=== PATIENT | female | born 1970 | race Hispanic/Latino ===

== ENCOUNTER 2016-05-30 21:50 | Observation (INO) | payer MEDICARE, MEDICAID ==
[2016-05-30] MEDS ORDERED: ASPIRIN TABLET 325 MG TAB ONE (22:03)
[2016-05-30] MEDS ORDERED: NITROGLYCERIN 0.4 MG 25 EA TAB SL ONE ×3 (22:03→22:12)
[2016-05-30] MEDS ORDERED: ASPIRIN TABLET 325 MG TAB PO ONE (22:04)
--- NOTE | 2016-05-30 22:19 | ED.PDOC ---
History of Present Illness - General Chief Complaint: Respiratory Problem Stated Complaint: short of breath, edema to feet Time Seen by Provider: 05/30/16 21:55 Source: patient, RN notes reviewed, Vital Signs reviewed Exam Limitations: no limitations - History of Present Illness Initial Comments: Patient reports that yesterday she started with intermittent chest tightness, SOB and lower extremity swelling. She thought she was having indigestion so she took OTC medications without improvement. + nausea and cold sweats. This has continued intermittently throughout today. Timing/Duration: 24 hours Severity: moderate Activities at Onset: none Possible Cause: no prior episodes Improving Factors: nothing Worsening Factors: nothing Associated Symptoms: chest pain, edema, lightheadedness Respiratory Risk Factors: no cause identified Allergies/Adverse Reactions: Allergies Levofloxacin [From Levaquin] Allergy (Intermediate, Verified 03/04/16 16:56) Rash Metronidazole [From Flagyl] Allergy (Verified 03/04/16 16:56) Sulfa Drugs Allergy (Verified 03/04/16 16:56) Morphine Adverse Reaction (Verified 03/04/16 16:56) Home Medications: Ambulatory Orders Clonazepam [Klonopin] 2 mg PO TID 04/15/14 Oxycodone W/ Acetaminophen [Percocet 10-325 mg] 2 tab PO QID 04/15/14 Insulin Glargine [Toujeo Solostar] 15 units SUBCU ACBK 06/02/15 Zolpidem Tartrate [Ambien] 10 mg PO BEDTIME 06/02/15 Dulaglutide [Trulicity] 1.5 mg SC WKLY 06/03/15 Gabapentin [Neurontin] 900 mg PO TID 06/03/15 Methylnaltrexone Conception [Relistor] 8 mg IM DAILY PRN 06/03/15 Promethazine Tab [Phenergan Tablet] 25 mg PO Q6H PRN 06/03/15 tiZANidine [Zanaflex] 4 mg PO Q8H PRN 06/03/15 Cefuroxime Axetil [Ceftin] 250 mg PO BID #20 tab 06/05/15 Tramadol HCl [Ultram] 100 mg PO Q6HRS PRN #30 tab 11/08/15 Ondansetron Odt [Zofran ODT] 8 mg PO Q6HR PRN #20 tab 12/23/16 Review of Systems - Review of Systems Constitutional: States: diaphoresis, malaise, weakness. Denies: chills, fever EENTM: States: no symptoms reported Respiratory: States: short of breath. Denies: cough, stridor, wheezing Cardiology: States: chest pain, edema, palpitations. Denies: syncope Gastrointestinal/Abdominal: States: nausea. Denies: abdominal pain, diarrhea, vomiting Genitourinary: States: no symptoms reported Musculoskeletal: States: no symptoms reported Skin: States: no symptoms reported Neurological: States: no symptoms reported Endocrine: States: no symptoms reported Hematologic/Lymphatic: States: no symptoms reported Past Medical History (General) - Patient Medical History Hx Seizures: No Hx Stroke: No Hx Dementia: No Hx Asthma: No Hx of COPD: No Hx Cardiac Disorders: No Hx Congestive Heart Failure: No Hx Pacemaker: No Hx Hypertension: No Hx Thyroid Disease: No Hx Diabetes: Yes Hx Gastroesophageal Reflux: No Hx Renal Disease: No Hx Cancer: No Hx of HIV: No Hx Hepatitis C: No Hx MRSA: No MRSA Source:: Wound Surgical History: appendectomy, cholecystectomy, Hysterectomy - Vaccination History Hx Tetanus, Diphtheria Vaccination: No Hx Influenza Vaccination: Yes Hx Pneumococcal Vaccination: No Immunizations Up to Date: Yes - Social History Hx Tobacco Use: Yes Hx Chewing Tobacco Use: No Hx Alcohol Use: No Hx Substance Use: No Hx Substance Use Treatment: No Hx Depression: No Feels Threatened In Home Enviroment: No Feels Threatened In a Relationship: No Hx Physical Abuse: No Hx Emotional Abuse: No Hx Suspected Abuse: No - Activities of Daily Living Hospice Agency (if applicable):: None - Female History Patient is a Female of Child Bearing Age (10 -59 yrs old): Yes Patient : No Family Medical History - Family History Mother Family History: Unknown Living Status: Physical Exam - Physical Exam General Appearance: Alert, Restless, Unkempt, Well Developed, Well Hydrated, Well Nourished Neck: non-tender, full range of motion, supple, normal inspection Respiratory: chest non-tender, lungs clear, normal breath sounds, no respiratory distress, no accessory muscle use Cardiovascular/Chest: normal peripheral pulses, regular rate, rhythm, no gallop , no JVD, other - 1+ edema bilateral ankles Peripheral Pulses: dorsalis pedis,right: 2+, dorsalis pedis,left: 2+ Gastrointestinal/Abdominal: normal bowel sounds, non tender, soft, no organomegaly, no pulsatile mass Extremity: normal range of motion, non-tender, normal capillary refill, pedal edema Neurologic: no motor/sensory deficits, alert, normal mood/affect, oriented x 3 Skin Exam: normal color, warm/dry Lymphatic: no adenopathy Progress - Progress Progress: 05/30/16 22:28 Patient reports no change in chest discomfort after 2 SLNTG but BP dropped to 102/53. Will hold off on 3rd SLNTG. She is also allergic to Morphine. 05/30/16 23:[address] Cobb. She has a mildly elevated CPK and BNP. Also she gives a fairly concerning story for cardiac issues. Will admit for Cardiac rule out. Patient agreeable with admission. - Results/Orders Results/Orders: Vital Signs - 24 hr 05/30/16 05/30/16 05/30/16 21:58 22:02 22:12 Temperature 98.6 F Pulse Rate [ 96 H 92 H monitor] Respiratory 18 18 Rate Blood Pressure 125/82 103/63 [Left Arm] O2 Sat by Pulse 96 Oximetry 05/30/16 05/30/16 22:20 22:34 Temperature Pulse Rate [ 85 monitor] Respiratory 14 Rate Blood Pressure 103/59 93/54 [Left Arm] O2 Sat by Pulse Oximetry Laboratory Tests 05/30/16 05/30/16 22:32 22:35 WBC 7.2 RBC 3.59 L Hgb 11.8 L Hct 35.5 L MCV 98.8 MCH 32.8 H MCHC 33.3 RDW 13.9 Plt Count 218 MPV 8.1 Absolute Neuts (auto) 4.20 Absolute Lymphs (auto) 2.40 Absolute Monos (auto) 0.40 Absolute Eos (auto) 0.10 Absolute Basos (auto) 0.10 Neutrophils % 58.7 Lymphocytes % 33.0 Monocytes % 5.9 Eosinophils % 1.2 Basophils % 1.2 D-Dimer, Quantitative < 200 Sodium 138 Potassium 4.1 Chloride 106 Carbon Dioxide 25 Anion Gap 11.1 L BUN 15 Creatinine 1.06 BUN/Creatinine Ratio 14.2 Random Glucose 160 H Serum Osmolality 279.9 Calcium 8.1 L Total Bilirubin 0.3 AST 21 ALT 50 Alkaline Phosphatase 70 Creatine Kinase 215 H* CK-MB (CK-2) 3.1 CK-MB (CK-2) % Not Reportable Troponin I < 0.02 B-Natriuretic Peptide 145.0 H Serum Total Protein 6.4 Albumin 3.5 Globulin 2.9 Albumin/Globulin Ratio 1.2 Urine Opiates Screen Positive H Urine Barbiturates Negative Ur Phencyclidine Scrn Negative U Amphetamin/Meth Scrn Negative U Benzodiazepines Scrn Positive H U Cocaine Metab Screen Negative U Cannabinoids Screen Negative - EKG/XRAY/CT EKG: Sinus, no ST T wave changes Comments: rate 92bpm Departure - Departure Clinical Impression: Chest pain, Nausea, Shortness of breath, Edema Time of Disposition: 23:11 Disposition: Admit Patient Condition: Fair Departure Forms: ED Discharge - Pt. Copy, Patient Portal Self Enrollment Home Medications: Ambulatory Orders Clonazepam [Klonopin] 2 mg PO TID 04/15/14 Oxycodone W/ Acetaminophen [Percocet 10-325 mg] 2 tab PO QID 04/15/14 Insulin Glargine [Toujeo Solostar] 15 units SUBCU ACBK 06/02/15 Zolpidem Tartrate [Ambien] 10 mg PO BEDTIME 06/02/15 Dulaglutide [Trulicity] 1.5 mg SC WKLY 06/03/15 Gabapentin [Neurontin] 900 mg PO TID 06/03/15 Methylnaltrexone Conception [Relistor] 8 mg IM DAILY PRN 06/03/15 Promethazine Tab [Phenergan Tablet] 25 mg PO Q6H PRN 06/03/15 tiZANidine [Zanaflex] 4 mg PO Q8H PRN 06/03/15 Cefuroxime Axetil [Ceftin] 250 mg PO BID #20 tab 06/05/15 Tramadol HCl [Ultram] 100 mg PO Q6HRS PRN #30 tab 11/08/15 Ondansetron Odt [Zofran ODT] 8 mg PO Q6HR PRN #20 tab 03/04/16 Decision To Admit - Decistion To Admit Decision to Admit Reason: Admit from ER
--- NOTE | 2016-05-30 22:52 | RAD ---
EXAM DESCRIPTION: Chest,1 View CLINICAL HISTORY: Atypical chest pain COMPARISON: None FINDINGS: Cardiac silhouette is within normal limits. Decreased lung volumes could be secondary to underinflation. Linear opacities of the lower lungs may represent scar versus subsegmental atelectasis. Patient is rotated. There is no acute osseous process visualized. IMPRESSION: Decreased lung volumes could be secondary to underinflation. Linear opacities of the lower lungs may represent scar versus subsegmental atelectasis. Electronically signed by: Jan Atkins MD 05/30/2016 10:52 PM CDT
[2016-05-30] MEDS ORDERED: SODIUM CHLORIDE 0.9% 1000ML 1,000 ML IVS ONE (23:05)
[2016-05-30] MEDS ORDERED: ONDANSETRON INJ 4 MG/2 ML VIAL IV ONE (23:09)
[2016-05-30] MEDS ORDERED: GLUCAGON INJ 1 MG VIAL SUBCU PRN (23:26)
[2016-05-30] MEDS ORDERED: NITROGLYCERIN 0.4 MG 25 EA TAB SL PRN (23:26)
[2016-05-30] MEDS ORDERED: DEXTROSE 50% 25 GM/50 ML SYG IV PRN (23:26)
[2016-05-30] MEDS ORDERED: SODIUM CHLORIDE 0.9% (FLUSH) 10 ML SYG IV PRN (23:26)
[2016-05-30] MEDS ORDERED: ACETAMINOPHEN 325 MG TAB PO PRN (23:26)
[2016-05-30] MEDS ORDERED: IV SET AND CAP CHANGE INJ INJ SCH (23:30)
[2016-05-30] MEDS ORDERED: SODIUM CHLORIDE 0.9% 1000ML 1,000 ML IVS PRN (23:32)
[2016-05-30] MEDS ORDERED: FUROSEMIDE INJ 20 MG/2 ML VIAL IV ONE (23:35)
[2016-05-30] MEDS ORDERED: tiZANidine 4 MG TAB PO PRN (23:37)
[2016-05-30] MEDS ORDERED: ONDANSETRON ODT 8 MG TAB PO PRN (23:37)
[2016-05-30] MEDS ORDERED: traMADol HCL 50 MG TAB PO PRN (23:44)
[2016-05-30] MEDS ORDERED: MAGNESIUM HYDROXIDE 30 ML UD PO PRN (23:45)
[2016-05-31] MEDS: GABAPENTIN 300 MG CAP PO SCH ×2 (00:11→09:43)
[2016-05-31] MEDS ORDERED: ZOLPIDEM TARTRATE 5 MG TAB ONE (00:22)
[2016-05-31] MEDS: HYDROcodone 7.5MG/APAP 325MG 1 EA TAB PO PRN ×3 (00:25→10:12)
[2016-05-31] MEDS: LEVALBUTEROL NEBS 1.25 MG/3 ML VIAL NEB SCH ×3 (00:55→14:35)
[2016-05-31] MEDS ORDERED: OMEPRAZOLE CAP 20 MG CAP PO SCH (06:30)
[2016-05-31] MEDS: INSULIN LISPRO 100 UNITS/ML PEN SUBCU SCH ×2 (07:28→09:44)
[2016-05-31] MEDS ORDERED: ASPIRIN TABLET 325 MG TAB PO SCH (09:00)
[2016-05-31] MEDS ORDERED: INSULIN DETEMIR 100 UNITS/ML PEN SUBCU SCH (09:00)
[2016-05-31] MEDS ORDERED: SODIUM CHLORIDE 0.9% (FLUSH) 10 ML SYG IV SCH (09:00)
[2016-05-31] MEDS ORDERED: POLYETHYLENE GLYCOL 3350 17 GM PCKT PO SCH (09:00)
--- NOTE | 2016-05-31 09:31 | PCM.CORE ---
Physician DVT/VTE - Nurse DVT Assessment & Total Each Risk Factor Represents 1 Point: Age 41-60, Hx of smoking past year Each Risk Factor is 1 Point: Varicose Veins/Edema Legs, Obesity (BMI >25) DVT Assessment Score: 4
[2016-05-31 10:17] VITALS: BP 106/67; TEMP 97.8; O2SAT 100
--- NOTE | 2016-05-31 13:27 | SSS ---
DATE OF ADMISSION: 05/30/16 DATE OF DISCHARGE: 05/31/16 DISCHARGE DIAGNOSIS: 1. Acute chest pain with no evidence of underlying ischemic coronary disease. 2. Diabetes mellitus, on insulin therapy. 3. Chest wall discomfort with costochondritis. 4. Chronic anxiety. 5. Chronic low back pain after surgeries and implantation and subsequent removal of analgesic pump. 6. History of urinary tract infections in the past. 7. History of vertigo. 8. Peripheral edema. 9. Diabetic peripheral neuropathy, symptomatic. 10. Chronic constipation, probably secondary to significant opioid medications for pain relief, being managed by pain clinic. HISTORY OF PRESENT ILLNESS: This 45-year-old, female is placed in the hospital for overnight observation from the Emergency Room. She had developed worsening chest discomfort earlier in the day with associated edema and shortness of breath. She came to the Emergency Room for specific treatment. She was given nitroglycerin 2 sublingual tablet which did not help the chest pain, but did significantly lower her systolic blood pressure. It is of note that she has had this chest pain before and states she has not been evaluated by cardiology yet. She is closely followed by Srinath Workman in the clinic in [facility]. It is of note that a month ago her son and daughter both moved into her home and they are assisting in her ongoing care. She is on insulin for her diabetes management as well as a diabetic diet. Symptoms of vertigo have been noted in the past. Significant anxiety has been noted in the Emergency Room and clinic visits in the past. The patient was placed in the hospital for serial EKG as well as cardiac enzyme repeating earlier this morning and close followup to follow. PAST MEDICAL HISTORY: 1. Diabetes mellitus, type 1.5, requiring insulin therapy. 2. History of colitis. 3. History of Clostridium difficile infection. 4. Gastroesophageal reflux disease. 5. Recurring urinary tract infections. 6. Headaches. 7. Chronic low back pain, having received multiple surgeries with hardware placement as well as pain management with analgesic pumps, now removed. 8. Irritable bowel syndrome. 9. Chronic anxiety and depression. PAST SURGICAL HISTORY: 1. Gallbladder removal. 2. Tonsillectomy and adenoidectomy. 3. Appendectomy. 4. Hysterectomy. 5. Incarcerated hernia. 6. on two occasions. 7. Right knee pain. 8. Back surgery on three occasions requiring cage for fixation and stabilization of the lumbar spine. CURRENT MEDICATIONS: Please refer to nursing notes for a list of verified home medications. MEDICAL PROVIDERS: 1. Dr. Esau Wing, [place]. 2. Srinath Workman, Nurse Practitioner, primary care provider. ALLERGIES: LEVOFLOXACIN, METRONIDAZOLE, SULFA MEDICATIONS. FAMILY HISTORY: No significant problems. SOCIAL HISTORY: The patient is disabled, . She has a history of smoking two packs of cigarettes for over 25 years, currently willing to stop and encouraged to do so. REVIEW OF SYSTEMS: GENERAL: No significant weight change, fever or chills. HEENT: Hearing and vision appear to be fairly normal. LUNGS: Shortness of breath, especially upon exertion. CARDIOVASCULAR: Chest discomfort, especially to the left of midline with referral to the left arm. No palpitations. GASTROINTESTINAL: No significant nausea or vomiting or diarrhea. GENITOURINARY: No dysuria. NEUROLOGIC: No focal weakness. No significant headaches at this time. PHYSICAL EXAMINATION: VITAL SIGNS: Afebrile. Blood pressure 104/68. Pulse oximetry 92% on room air , up to 100% on room air. Weight 89.3 kg. GENERAL: The patient is awake and alert. She is quite anxious and tearful at times as she describes her many symptoms. HEENT: Within normal limits. NECK: Supple. LUNGS: Diminished breath sounds, otherwise clear. CARDIOVASCULAR: Heart tones are regular. There is significant chest wall discomfort and tenderness upon palpation to the left of midline, which is where she is pointing as to the location of her underlying pain. She admits to increased pain when chest wall is palpated, but admits there are other components of the pain which are not specifically tied to the palpation. There are no significant gallops. ABDOMEN: Soft with no organomegaly, masses. EXTREMITIES: Fairly well-formed with trace of edema at the ankles and feet. NEUROLOGIC: No focal neurological deficits are noted. The patient is awake, alert, oriented and communicative. LABORATORY: White count 5,600. Hemoglobin 12.1. D-dimer under 200. Chemistries show potassium 3.9, BUN 13, creatinine 0.94, glucose 140 up to 160. Hemoglobin A1c 7.2. Calcium 8. Liver enzymes normal. CK decreased from 215 to 168 while troponin is 0. Beta natriuretic peptide 145. Albumin 3.5, cholesterol 200. Urinalysis generally clean. Urine drug screen is positive for opioids and benzodiazepines. MRSA surveillance culture pending. Chest x- ray reveals hypoventilation with some atelectasis noted in the lower lung murdock. HOSPITAL COURSE: The patient will still having some discomfort at the time of her discharge. She was still quite anxious, but was significantly assisted by the Klonopin when administered. Her condition is discussed with Dr. Carroll who will be glad to work closely with Srinath Workman in further cardiac evaluation after the patient is discharged. PLAN: Followup with Srinath Workman in the clinic this next with appointment to be made. Continue on a diabetic diet and closely manage the diabetes itself. Continue with home medications except decrease the gabapentin from 900 to 600 mg 3 times a day. Try meclizine 25 mg b.i.d. for dizziness and Prilosec 20 mg in the morning for the next 2 weeks at least to see if it will help some of her epigastric tenderness and discomfort. Srinath Workman can notify Dr. Carroll who will be able to help schedule a stress test to evaluate the cardiac situation. Return if not improving. #[id number] [facility]
[2016-05-31] MEDS ORDERED: ZOLPIDEM TARTRATE 5 MG TAB PO SCH (21:00)
== END 2016-05-31 14:00 | disposition home or self-care (01) ==
LOC: ER 21:50 → MS 23:16
PROVIDERS: ADMIT Emergency Medicine; ATTEND Emergency Medicine
DX: R07.89 Other chest pain (principal); R06.02 Shortness of breath; E11.42 Type 2 diabetes mellitus with diabetic polyneuropathy; M94.0 Chondrocostal junction syndrome [Tietze]; F41.9 Anxiety disorder, unspecified; G89.29 Other chronic pain; M54.5 Low back pain; R42 Dizziness and giddiness; R60.0 Localized edema; K58.1 Irritable bowel syndrome with constipation; K21.9 Gastro-esophageal reflux disease without esophagitis; F32.9 Major depressive disorder, single episode, unspecified; F17.210 Nicotine dependence, cigarettes, uncomplicated; Z79.4 Long term (current) use of insulin; Z79.899 Other long term (current) drug therapy; Z88.2 Allergy status to sulfonamides; Z88.3 Allergy status to other anti-infective agents; Z87.440 Personal history of urinary (tract) infections; Z90.49 Acquired absence of other specified parts of digestive tract; Z90.710 Acquired absence of both cervix and uterus
CPT/HCPCS: 36415 ×2; 36416 ×2; 71010; 80048; 80053; 80061; 80307; 81001; 82550 ×2; 82553 ×2; 82948 ×3; 83036; 83880; 84484 ×2; 85025 ×2; 85379; 87070; 93005 ×2; 94640 ×2; 94760 ×2; G0378; J1815 ×2; J1940; J2405; J7030 ×2; J7614 ×2

== ENCOUNTER 2016-06-15 16:40 | Emergency (ER) | payer MEDICARE, MEDICAID ==
[2016-06-15] MEDS ORDERED: ASPIRIN (CHEWABLE) 81 MG TAB ONE (16:44)
[2016-06-15] MEDS ORDERED: NITROGLYCERIN 0.4 MG 25 EA TAB SL ONE ×2 (16:44→16:47)
[2016-06-15] MEDS ORDERED: MORPHINE SULFATE INJ 10 MG/ML VIAL ONE (17:02)
[2016-06-15] MEDS ORDERED: MORPHINE SULFATE INJ 10 MG/ML VIAL IV ONE (17:03)
[2016-06-15] MEDS ORDERED: ASPIRIN TABLET 325 MG TAB PO ONE (17:04)
--- NOTE | 2016-06-15 17:13 | ED.PDOC ---
History of Present Illness - General Chief Complaint: Chest Pain/CT Stated Complaint: Chest Pain X 1 hour Time Seen by Provider: 06/15/16 17:08 Source: patient, RN notes reviewed, Vital Signs reviewed Exam Limitations: no limitations - History of Present Illness Initial Comments: Patient presents with 1 hour of substernal chest pain/heaviness that is radiating to her shoulder blade on the L. C/O fluttering in her chest. + SOB and nausea. No diaphoresis. She had a similar episode a few weeks ago and was found to have CHF. She saw her PCP today while awaiting appt with Project Technician. She has been having a rapid heart rate and started a new medication for that. She took a dose when her chest pain and fluttering started. Timing/Duration: 1 hour Severity/Quality: severe, pressure, tightness Location: substernal Chest Pain Radiation: back Activities at Onset: none Prior Chest Pain/Cardiac Workup: other - she was admited to the hospital last month for cardiac rule out which was negative. Asaiting further w/u with Project Technician. Improving Factors: nothing Worsening Factors: nothing Nitro Today/Relief: no nitro taken today Aspirin Treatment Today: no aspirin today Associated Symptoms: back pain, edema, nausea/vomiting, shortness of breath Allergies/Adverse Reactions: Allergies Levofloxacin [From Levaquin] Allergy (Intermediate, Verified 03/04/16 16:56) Rash Metronidazole [From Flagyl] Allergy (Verified 03/04/16 16:56) Sulfa Drugs Allergy (Verified 03/04/16 16:56) Morphine Adverse Reaction (Verified 03/04/16 16:56) Home Medications: Ambulatory Orders Clonazepam [Klonopin] 2 mg PO TID 04/15/14 Zolpidem Tartrate [Ambien] 10 mg PO BEDTIME 06/02/15 tiZANidine [Zanaflex] 4 mg PO Q8H PRN 06/03/15 Tramadol HCl [Ultram] 100 mg PO Q6HRS PRN #30 tab 11/08/15 Gabapentin [Neurontin] 600 mg PO TID #0 05/31/16 HYDROcodone 10MG/APAP 325MG [[place] 10/325] 1 tab PO Q6H PRN 05/31/16 Insulin Detemir [Levemir Pen] 10 unit SUBCU BEDTIME 05/31/16 Liraglutide [Victoza] 1.8 mg SC DAILY 05/31/16 Meclizine HCl 25 mg PO BID PRN #30 tab 05/31/16 Omeprazole Magnesium [Prilosec Otc] 20 mg PO QAM #30 tab 05/31/16 Review of Systems - Review of Systems Constitutional: States: chills. Denies: diaphoresis, fever, malaise Respiratory: States: see HPI, short of breath. Denies: cough, orthopnea, stridor Cardiology: States: see HPI, chest pain, edema, palpitations. Denies: syncope Gastrointestinal/Abdominal: States: see HPI, nausea. Denies: abdominal pain, diarrhea, vomiting Musculoskeletal: States: see HPI, back pain Skin: States: no symptoms reported Neurological: States: no symptoms reported. Denies: headache, numbness, paresthesia, tingling, tremors, weakness Endocrine: States: no symptoms reported Past Medical History (General) - Patient Medical History Hx Seizures: No Hx Stroke: Yes Hx Dementia: No Hx Asthma: No Hx of COPD: Yes Hx Cardiac Disorders: No Hx Congestive Heart Failure: No Hx Pacemaker: No Hx Hypertension: No Hx Thyroid Disease: No Hx Diabetes: Yes Hx Gastroesophageal Reflux: No Hx Renal Disease: No Hx Cancer: No Hx of HIV: No Hx Hepatitis C: No Hx MRSA: Yes MRSA Source:: Wound - Vaccination History Hx Tetanus, Diphtheria Vaccination: No Hx Influenza Vaccination: Yes Hx Pneumococcal Vaccination: No - Social History Hx Tobacco Use: Yes Hx Chewing Tobacco Use: No Hx Alcohol Use: No Hx Substance Use: No Hx Substance Use Treatment: No Hx Depression: No Hx Physical Abuse: No Hx Emotional Abuse: No Hx Suspected Abuse: No - Female History Patient : No Family Medical History - Family History Mother Family History: Unknown Living Status: Physical Exam - Physical Exam General Appearance: Anxious, Obvious distress - appears in pain and SOB, Well Developed, Well Groomed, Well Hydrated, Well Nourished Neck: non-tender, full range of motion, supple, normal inspection Respiratory: lungs clear, normal breath sounds, no respiratory distress, no accessory muscle use, other - Chest is tender to palpation. Cardiovascular/Chest: normal peripheral pulses, no edema, no gallop, no JVD, no murmur, tachycardia Peripheral Pulses: dorsalis pedis,right: 2+, dorsalis pedis,left: 2+ Gastrointestinal/Abdominal: normal bowel sounds, non tender, soft, no organomegaly, no pulsatile mass Neurologic: no motor/sensory deficits, alert, normal mood/affect, oriented x 3 Skin Exam: normal color, warm/dry Comments: Vital Signs - 24 hr 06/15/16 06/15/16 06/15/16 16:40 16:48 16:53 Temperature 98.1 F Pulse Rate 106 H Pulse Rate [ 102 H 113 H 102 H Apical] Respiratory 26 H 26 H 26 H Rate Blood Pressure 113/73 113/73 110/71 [Right Arm] O2 Sat by Pulse 91 L 89 L 95 Oximetry 06/15/16 06/15/16 06/15/16 16:58 17:31 18:05 Temperature Pulse Rate Pulse Rate [ 103 H 86 Apical] Respiratory 26 H 26 H Rate Blood Pressure 116/66 122/64 [Right Arm] O2 Sat by Pulse 92 L 90 L 95 Oximetry 06/15/16 06/15/16 19:00 20:21 Temperature Pulse Rate Pulse Rate [ 84 72 Apical] Respiratory 20 18 Rate Blood Pressure 118/62 95/61 [Right Arm] O2 Sat by Pulse 95 95 Oximetry Progress - Progress Progress: 06/15/16 17:41 Patient continues to c/o pain. Presentation is exact same as visit last month. Other than tachycardia her EKG is unchanged. No rash or problem with morphine. Will give Toradol and ativan for pain and anxiety. 06/15/16 17:44 Patient seen on arrival. Given ASA 324mg PO/chewed @ 1647 Reports pain is 8 16:48 SLNTG #1 given 16:53 pain 7/10 - SLNTG #2 given 16:58 pain 6/10 - SLNTG #3 given 17:07 pain 6/10 - Morphine 4mg IV given 17:10 pain 5/10 06/15/16 18:37 Initial cardiac workup is normal. Will redraw cardiac labs in 2 hours. 06/15/16 19:43 Patient continuing to c/o chest pain that is waxing and waning. Will try Protonix IV 06/15/16 20:28 Second set of cardiac enzymes are normal. Unlikely pain is cardiac in nature. 06/15/16 20:47 Discussed Symptoms and results with patient. Discussed that now given 2 negative cardiac work ups it is unlikely that her pain is cardiac in nature. Also, no medications given on this visit, (Aspirin, nitroglycerin, morphine, toradol, ativan or protonix) changed or resolved her pain. Discussed could be musculoskeletal. Will try a steroid pack. Patient just wants to go home. Will d/ c home and have her follow up with her PCP. - Results/Orders Results/Orders: Laboratory Tests 06/15/16 06/15/16 17:10 19:32 WBC 6.9 RBC 4.01 L Hgb 13.4 Hct 39.3 MCV 98.0 MCH 33.4 H MCHC 34.1 RDW 13.6 Plt Count 262 MPV 8.8 Absolute Neuts (auto) 3.50 Absolute Lymphs (auto) 2.90 Absolute Monos (auto) 0.30 Absolute Eos (auto) 0.10 Absolute Basos (auto) 0.10 Neutrophils % 50.5 Lymphocytes % 42.2 Monocytes % 5.1 Eosinophils % 1.2 Basophils % 1.0 PT 11.9 INR 1.050 PTT (SP) 31.4 Sodium 137 Potassium 3.1 L Chloride 108 Carbon Dioxide 22 Anion Gap 10.1 L BUN 21 H Creatinine 0.89 BUN/Creatinine Ratio 23.6 H Random Glucose 137 H Serum Osmolality 278.9 Calcium 9.0 Magnesium 2.0 Creatine Kinase 64 56 CK-MB (CK-2) 1.6 0.8 CK-MB (CK-2) % Not Reportable Not Reportable Troponin I < 0.02 < 0.02 B-Natriuretic Peptide < 5.0 - EKG/XRAY/CT EKG: Sinus, Tachy, nonspecific ST T wave Chg, Unchanged from - 05/30/16 except for rate Comments: Rate 106 bpm Departure - Departure Clinical Impression: Atypical chest pain Time of Disposition: 20:51 Disposition: Discharge to Home or Self Care Condition: Good Departure Forms: ED Discharge - Pt. Copy, Patient Portal Self Enrollment Instructions: DI for Atypical Chest Pain Diet: resume usual diet Activity: increase activity as tolerated Referrals: MAMI ALMEIDA IV ELECTRICITY TRADER [Primary Care Provider] - 1-2 Days Home Medications: Ambulatory Orders Clonazepam [Klonopin] 2 mg PO TID 04/15/14 Zolpidem Tartrate [Ambien] 10 mg PO BEDTIME 06/02/15 tiZANidine [Zanaflex] 4 mg PO Q8H PRN 06/03/15 Tramadol HCl [Ultram] 100 mg PO Q6HRS PRN #30 tab 11/08/15 Gabapentin [Neurontin] 600 mg PO TID #0 05/31/16 HYDROcodone 10MG/APAP 325MG [[place] 10325] 1 tab PO Q6H PRN 05/31/16 Insulin Detemir [Levemir Pen] 10 unit SUBCU BEDTIME 05/31/16 Liraglutide [Victoza] 1.8 mg SC DAILY 05/31/16 Meclizine HCl 25 mg PO BID PRN #30 tab 05/31/16 Omeprazole Magnesium [Prilosec Otc] 20 mg PO QAM #30 tab 05/31/16
--- NOTE | 2016-06-15 17:31 | RAD ---
EXAM DESCRIPTION: Chest,1 View CLINICAL HISTORY: 45 years Female chest pain COMPARISON: 05/30/2016. FINDINGS: The cardiomediastinal silhouette appears unremarkable. Mild atelectatic change at the left lung base. The atelectatic changes at the lung bases are improved compared to the previous study. No consolidating infiltrates or pleural effusions. No pneumothorax. IMPRESSION: Atelectatic changes at the left lung base. Electronically signed by: Phillip Leyva MD 06/15/2016 5:30 PM CDT
[2016-06-15] MEDS ORDERED: KETOROLAC TROMETHAMINE INJ 30 MG/ML VIAL IV ONE (17:43)
[2016-06-15] MEDS ORDERED: KETOROLAC TROMETHAMINE INJ 30 MG/ML VIAL ONE (18:53)
[2016-06-15] MEDS ORDERED: ASPIRIN TABLET 325 MG TAB ONE (18:54)
[2016-06-15] MEDS ORDERED: PANTOPRAZOLE SODIUM IV 40 MG VIAL IV ONE (19:42)
[2016-06-15 21:19] VITALS: BP 121/77; TEMP 98; O2SAT 96
== END 2016-06-15 21:00 | disposition home or self-care (01) ==
LOC: ER 16:40
DX: R07.89 Other chest pain (principal); E11.9 Type 2 diabetes mellitus without complications; J44.9 Chronic obstructive pulmonary disease, unspecified; Z86.14 Personal history of Methicillin resistant Staphylococcus aureus infection; Z88.2 Allergy status to sulfonamides; Z88.3 Allergy status to other anti-infective agents; Z79.899 Other long term (current) drug therapy
CPT/HCPCS: 36415; 71010; 80048; 82550; 82553; 83880; 84484; 85025; 85610; 85730; 93005; 94760; J1885; J2060; J2270

== ENCOUNTER → 2016-10-03 | Outpatient (CLI) | payer MEDICARE, MEDICAID | END | disposition home or self-care (01) | LOC: YCFC.O 09:14 | PROVIDERS: ATTEND Anesthesiology Pain Medicine | DX: Z79.891 Long term (current) use of opiate analgesic (principal) ==

== ENCOUNTER → 2016-10-18 | Outpatient (CLI) | payer MEDICARE, MEDICAID | END | disposition home or self-care (01) | LOC: YCFC.O 13:34 | PROVIDERS: ATTEND Anesthesiology Pain Medicine | DX: Z79.891 Long term (current) use of opiate analgesic (principal) ==

== ENCOUNTER → 2017-01-10 | Outpatient (CLI) | payer MEDICARE, MEDICAID | LOC: YCFC.O 13:22 | PROVIDERS: ATTEND Anesthesiology Pain Medicine | DX: Z79.891 Long term (current) use of opiate analgesic (principal) ==

== ENCOUNTER 2018-08-21 11:56 | Emergency (ER) | payer MEDICARE, MEDICAID ==
--- NOTE | 2018-08-21 12:27 | ED.PDOC ---
History of Present Illness - General Chief Complaint: Cardiovascular Problem Time Seen by Provider: 08/21/18 12:15 Source: patient Exam Limitations: no limitations - History of Present Illness Initial Comments: PT PRESENTS WITH COMPLAINT OF INTERMITTENT EPISODES OF CHEST PAIN DESCRIBED TIGHTNESS X 1 DAY. PT REPORTS TAKING NTG WITH THE FIRST EPISODE AND REPORTS RELIEF. SHE STATES THAT EPISODES HAVE CONTINUED TO REOCCUR SINCE THEN. SHE DENIES TAKING ADDITIONAL NTG. PT REPORTS HISTORY OF MO AND CHF AND WILL BE SEEING DR. SHEARER FOR THE FIRST TIME SOON. Timing/Duration: 7-24 hours Severity/Quality: moderate, tightness Location: substernal Chest Pain Radiation: no radiation Activities at Onset: sleep Prior Chest Pain/Cardiac Workup: heart attack Nitro Today/Relief: 0.4 mg x 1 Aspirin Treatment Today: 81 mg x 1 Associated Symptoms: denies symptoms Allergies/Adverse Reactions: Allergies Levofloxacin [From Levaquin] Allergy (Intermediate, Verified 08/21/18 12:43) Rash Metronidazole [From Flagyl] Allergy (Verified 08/21/18 12:43) Sulfa Drugs Allergy (Verified 08/21/18 12:43) Home Medications: Ambulatory Orders Clonazepam [Klonopin] 2 mg PO TID 04/15/14 Zolpidem Tartrate [Ambien] 10 mg PO BEDTIME 06/02/15 tiZANidine [Zanaflex] 4 mg PO Q8H PRN 06/03/15 Tramadol HCl [Ultram] 100 mg PO Q6HRS PRN #30 tab 11/08/15 Gabapentin [Neurontin] 600 mg PO TID #0 05/31/16 HYDROcodone 10MG/APAP 325MG [[place] 10/325] 1 tab PO Q6H PRN 05/31/16 Insulin Detemir [Levemir Pen] 10 unit SUBCU BEDTIME 05/31/16 Liraglutide [Victoza] 1.8 mg SC DAILY 05/31/16 Meclizine HCl 25 mg PO BID PRN #30 tab 05/31/16 Omeprazole Magnesium [Prilosec Otc] 20 mg PO QAM #30 tab 05/31/16 Review of Systems - Review of Systems Constitutional: Denies: chills, fever EENTM: Denies: nose congestion, throat pain Respiratory: Denies: cough, short of breath Cardiology: States: chest pain. Denies: palpitations Gastrointestinal/Abdominal: Denies: nausea, vomiting Genitourinary: Denies: dysuria, frequency Musculoskeletal: Denies: joint pain, joint swelling Skin: Denies: lesions, rash Neurological: Denies: headache, numbness Endocrine: States: no symptoms reported Hematologic/Lymphatic: States: no symptoms reported Past Medical History (General) - Patient Medical History Hx Seizures: No Hx Stroke: No Hx Dementia: No Hx Asthma: No Hx of COPD: No Hx Cardiac Disorders: Yes Hx Congestive Heart Failure: Yes Hx Pacemaker: No Hx Hypertension: Yes Hx Thyroid Disease: No Hx Diabetes: Yes Hx Gastroesophageal Reflux: Yes Hx Renal Disease: No Hx Cancer: No Hx of HIV: No Hx Hepatitis C: No Hx MRSA: Yes MRSA Source:: Wound - Vaccination History Hx Tetanus, Diphtheria Vaccination: No Hx Influenza Vaccination: Yes Hx Pneumococcal Vaccination: No - Social History Hx Tobacco Use: Yes Hx Chewing Tobacco Use: No Hx Alcohol Use: No Hx Substance Use: No Hx Substance Use Treatment: No Hx Depression: No Hx Physical Abuse: No Hx Emotional Abuse: No Hx Suspected Abuse: No - Female History Patient : No Family Medical History - Family History Mother Family History: Unknown Living Status: Hx Cardiac Disease: Yes Hx Family Diabetes: Yes Physical Exam - Physical Exam General Appearance: Alert, Anxious, Well Developed, Well Groomed, Well Hydrated Eyes, Ears, Nose, Throat Exam: normal ENT inspection, TMs normal Neck: full range of motion, supple Respiratory: lungs clear, normal breath sounds, no respiratory distress Cardiovascular/Chest: regular rate, rhythm, no edema Gastrointestinal/Abdominal: non tender, soft Extremity: normal inspection, no pedal edema Neurologic: alert, normal mood/affect, oriented x 3 Skin Exam: normal color, warm/dry Progress - Progress Progress: 08/21/18 14:27 PT REPORTS SOME IMPROVEMENT IN PAIN HOWEVER STILL HAVING INTERMITTENT EPISODES OF CHEST TIGHTNESS AFTER NTG PASTE PLACEMENT. - Results/Orders Results/Orders: Laboratory Tests 08/21/18 12:30 WBC 6.2 RBC 3.99 L Hgb 13.6 Hct 39.9 MCV 99.9 H MCH 34.0 H MCHC 34.0 RDW 13.4 Plt Count 227 MPV 8.6 Absolute Neuts (auto) 3.40 Absolute Lymphs (auto) 2.30 Absolute Monos (auto) 0.30 Absolute Eos (auto) 0.10 Absolute Basos (auto) 0.00 Neutrophils % 55.0 Lymphocytes % 37.0 Monocytes % 5.2 Eosinophils % 2.1 Basophils % 0.7 PT 9.9 INR 0.99 PTT (SP) 25.9 Sodium 137 Potassium 3.4 L Chloride 105 Carbon Dioxide 20 L Anion Gap 15.4 BUN 8 Creatinine 0.94 BUN/Creatinine Ratio 8.5 L Random Glucose 106 H Serum Osmolality 272.6 L Calcium 9.0 Magnesium 2.0 Creatine Kinase 43 CK-MB (CK-2) 0.6 CK-MB (CK-2) % Not Reportable Troponin I < 0.02 B-Natriuretic Peptide 6.7 - EKG/XRAY/CT EKG: Sinus - @89BPM, NL INTERVALS, NL AXIS, nonspecific ST T wave Chg, Unchanged from - 07/29/18 - Consult/PCP Time Called: 14:35 Consult/PCP: DR. SHEARER Consult Reason/Comments: CASE DISCUSSED AGREES TO CONSULT, RECOMMENDS TRANSFER TO [facility] Departure - Departure Clinical Impression: Chest pain, History of CHF (congestive heart failure), History of COPD, Tobacco abuse Time of Disposition: 14:28 Disposition: Transfer to Hospital Condition: Fair Departure Forms: ED Discharge - Pt. Copy, Patient Portal Self Enrollment Instructions: DI for Chest Pain Referrals: MAMI ALMEIDA IV, PREVENTION RN [Primary Care Provider] - 1-2 Weeks Home Medications: Ambulatory Orders Clonazepam [Klonopin] 2 mg PO TID 04/15/14 Zolpidem Tartrate [Ambien] 10 mg PO BEDTIME 06/02/15 tiZANidine [Zanaflex] 4 mg PO Q8H PRN 06/03/15 Tramadol HCl [Ultram] 100 mg PO Q6HRS PRN #30 tab 11/08/15 Gabapentin [Neurontin] 600 mg PO TID #0 05/31/16 HYDROcodone 10MG/APAP 325MG [[place] 10/325] 1 tab PO Q6H PRN 05/31/16 Insulin Detemir [Levemir Pen] 10 unit SUBCU BEDTIME 05/31/16 Liraglutide [Victoza] 1.8 mg SC DAILY 05/31/16 Meclizine HCl 25 mg PO BID PRN #30 tab 05/31/16 Omeprazole Magnesium [Prilosec Otc] 20 mg PO QAM #30 tab 05/31/16 Transfer to Outside Facility - Transfer Information Accepting Provider:: DR. DILLON Accepting Facility: [facility] Reason for Transfer: specialized care not available
[2018-08-21] MEDS: ASPIRIN TABLET 325 MG TAB PO ONE (12:28)
[2018-08-21] MEDS: NITROGLYCERIN 2% 1 GM UD TOP ONE (12:28)
[2018-08-21] MEDS: SODIUM CHLORIDE 0.9% (FLUSH) 10 ML SYG IV PRN (12:29)
--- NOTE | 2018-08-21 12:45 | RAD ---
Study: Single Frontal Radiograph of the Chest. Indication:CHEST PAIN Comparison: July 29, 2018 Impression: Heart size normal. Mild bilateral basilar atelectasis, otherwise lungs clear. No acute osseous abnormality. Electronically signed by: Ian Aguirre MD 08/21/2018 12:43 PM CDT
[2018-08-21] MEDS: ACETAMINOPHEN 500 MG TAB PO ONE (12:46)
[2018-08-21] MEDS: MORPHINE SULFATE INJ 10 MG/ML VIAL IV ONE ×2 (13:21→15:04)
[2018-08-21] MEDS: ONDANSETRON INJ 4 MG/2 ML VIAL IV ONE (15:04)
[2018-08-21 15:47] VITALS: BP 105/75; TEMP 98.2
[2018-08-21 16:00] VITALS: O2SAT 95
== END 2018-08-21 15:53 | disposition short-term general hospital (02) ==
LOC: ER 11:56
DX: R07.9 Chest pain, unspecified (principal); I50.9 Heart failure, unspecified; J44.9 Chronic obstructive pulmonary disease, unspecified; F17.200 Nicotine dependence, unspecified, uncomplicated; I25.2 Old myocardial infarction; E11.9 Type 2 diabetes mellitus without complications; K21.9 Gastro-esophageal reflux disease without esophagitis; I11.0 Hypertensive heart disease with heart failure; Z79.899 Other long term (current) drug therapy; Z79.4 Long term (current) use of insulin; Z88.1 Allergy status to other antibiotic agents; Z88.2 Allergy status to sulfonamides
CPT/HCPCS: 71045; 80048; 82550; 82553; 83880; 84484; 85025; 85610; 85730; 93005; J2270; J2405

== ENCOUNTER → 2018-09-17 | Outpatient (CLI) | payer MEDICARE, MEDICAID ==
--- NOTE | 2018-09-17 10:35 | RAD ---
EXAM DESCRIPTION: Chest,2 Views CLINICAL HISTORY: CHRONIC OBSTRUCTIVE PULMONARY DISEASE COMPARISON: Previous study August 21, 2018 TECHNIQUE: PA/lateral FINDINGS: There is no acute appearing cardiac or pulmonary abnormality. Discoid atelectasis right infrahilar region. Heart size is normal with normal pulmonary vascularity. No pleural effusion or pneumothorax. Lungs are clear with no consolidating infiltrate. Lateral view shows intact sternum and T-spine. IMPRESSION: No acute process is identified in the chest. Electronically signed by: Fletcher Reed MD 09/17/2018 10:33 AM CDT
== END ==
LOC: LAB.O 09:29
PROVIDERS: ATTEND Nurse Practitioner Family
DX: E11.9 Type 2 diabetes mellitus without complications (principal); J44.9 Chronic obstructive pulmonary disease, unspecified

== ENCOUNTER 2018-09-30 09:32 | Emergency (ER) | payer MEDICARE, MEDICAID ==
[2018-09-30] MEDS ORDERED: NITROGLYCERIN 2% 1 GM UD TOP ONE (09:56)
[2018-09-30] MEDS ORDERED: ASPIRIN (CHEWABLE) 81 MG TAB PO ONE (09:56)
[2018-09-30] MEDS ORDERED: ONDANSETRON INJ 4 MG/2 ML VIAL IV ONE (10:06)
--- NOTE | 2018-09-30 10:37 | RAD ---
EXAM: XR Chest, 1 View CLINICAL HISTORY: 48 years old and is Female; chest pain, dyspnea TECHNIQUE: Frontal view of the chest. COMPARISON: No relevant prior studies available. FINDINGS: Limitations: None. Lungs: There is basilar vascular crowding. No consolidation. Pleural space: Unremarkable. No pneumothorax. Heart: Unremarkable. No cardiomegaly. Mediastinum: Unremarkable. Bones/joints: Unremarkable. IMPRESSION: No significant acute abnormality noted. Electronically signed by: Naomi Walker MD 09/30/2018 10:35 AM CDT
--- NOTE | 2018-09-30 11:15 | ED.PDOC ---
History of Present Illness - General Chief Complaint: Chest Pain/[place] Stated Complaint: Chest discomfort, SOB Time Seen by Provider: 09/30/18 09:48 Source: patient Exam Limitations: no limitations - History of Present Illness Initial Comments: Patient is a 48 yo F with COPD and CHF who presents with chest pain for one hour. It is mid-sternal and sharp in nature with left arm tingling. Constant but intermittent in intensity. She had dyspnea and some diaphoresis at onset. Multiple previous episodes but she says it isn't going away or improving this time. She took nitrotabs x three at home with not improvement. She has light- headedness as well. She says she sees Dr Case in [place] and. No other complaints. Timing/Duration: 1-3 hours Severity: moderate Improving Factors: nothing Worsening Factors: nothing Associated Symptoms: other - as in HPI Allergies/Adverse Reactions: Allergies Levofloxacin [From Levaquin] Allergy (Intermediate, Verified 09/30/18 10:05) Rash Metronidazole [From Flagyl] Allergy (Verified 09/30/18 10:05) Sulfa Drugs Allergy (Verified 09/30/18 10:05) Home Medications: Ambulatory Orders Clonazepam [Klonopin] 2 mg PO TID 04/15/14 Zolpidem Tartrate [Ambien] 10 mg PO BEDTIME 06/02/15 tiZANidine [Zanaflex] 4 mg PO Q8H PRN 06/03/15 Tramadol HCl [Ultram] 100 mg PO Q6HRS PRN #30 tab 11/08/15 Gabapentin [Neurontin] 600 mg PO TID #0 05/31/16 HYDROcodone 10MG/APAP 325MG [[place] 10/325] 1 tab PO Q6H PRN 05/31/16 Insulin Detemir [Levemir Pen] 10 unit SUBCU BEDTIME 05/31/16 Liraglutide [Victoza] 1.8 mg SC DAILY 05/31/16 Meclizine HCl 25 mg PO BID PRN #30 tab 05/31/16 Omeprazole Magnesium [Prilosec Otc] 20 mg PO QAM #30 tab 05/31/16 Review of Systems - Review of Systems Constitutional: States: other - as in HPI EENTM: States: no symptoms reported Respiratory: States: see HPI Cardiology: States: see HPI Gastrointestinal/Abdominal: States: no symptoms reported Genitourinary: States: no symptoms reported Musculoskeletal: States: no symptoms reported Neurological: States: no symptoms reported Endocrine: States: no symptoms reported Hematologic/Lymphatic: States: no symptoms reported Past Medical History (General) - Patient Medical History Hx Seizures: No Hx Stroke: No Hx Dementia: No Hx Asthma: No Hx of COPD: Yes Hx Cardiac Disorders: No Hx Congestive Heart Failure: Yes Hx Pacemaker: No Hx Hypertension: No Hx Thyroid Disease: No Hx Diabetes: Yes Hx Gastroesophageal Reflux: Yes Hx Renal Disease: No Hx Cancer: No Hx of HIV: No Hx Hepatitis C: No Hx MRSA: Yes MRSA Source:: Wound Surgical History: Hysterectomy, other - Vaccination History Hx Tetanus, Diphtheria Vaccination: Yes Hx Influenza Vaccination: Yes Hx Pneumococcal Vaccination: No - Social History Hx Tobacco Use: Yes Hx Chewing Tobacco Use: No Hx Alcohol Use: Yes Hx Substance Use: No Hx Substance Use Treatment: No Hx Depression: No Hx Physical Abuse: No Hx Emotional Abuse: No Hx Suspected Abuse: No - Female History Patient is a Female of Child Bearing Age (10 -59 yrs old): Yes Patient : No - Complete hysterectomy Family Medical History - Family History Mother Family History: Unknown Living Status: Hx Cardiac Disease: Yes Hx Family Diabetes: Yes Physical Exam - Physical Exam General Appearance: Alert Eye Exam: bilateral normal Ears, Nose, Throat: normal ENT inspection Neck: non-tender, full range of motion, supple Respiratory: other - distant breath sounds Cardiovascular/Chest: normal peripheral pulses, regular rate, rhythm Gastrointestinal/Abdominal: normal bowel sounds, non tender, soft Back Exam: normal inspection, no CVA tenderness Extremity: normal range of motion, non-tender Neurologic: no motor/sensory deficits, alert, normal mood/affect, oriented x 3 Progress - Progress Progress: 09/30/18 11:17 Laboratory Tests 09/30/18 09/30/18 09/30/18 10:01 10:01 10:01 WBC 5.3 RBC 3.91 L Hgb 13.1 Hct 38.9 MCV 99.5 H MCH 33.6 H MCHC 33.8 RDW 13.6 Plt Count 213 MPV 8.8 Absolute Neuts (auto) 3.50 Absolute Lymphs (auto) 1.40 Absolute Monos (auto) 0.30 Absolute Eos (auto) 0.10 Absolute Basos (auto) 0.10 Neutrophils % 65.9 Lymphocytes % 25.8 Monocytes % 5.7 Eosinophils % 1.4 Basophils % 1.2 PT 10.1 INR 1.01 PTT (SP) 27.1 Sodium 137 Potassium 3.7 Chloride 106 Carbon Dioxide 22 Anion Gap 12.7 BUN 7 Creatinine 0.82 BUN/Creatinine Ratio 8.5 L Random Glucose 176 H Serum Osmolality 276.1 Calcium 9.0 Magnesium 2.1 Total Bilirubin 0.4 AST 17 ALT < 8 L Alkaline Phosphatase 53 Creatine Kinase 62 CK-MB (CK-2) 0.6 CK-MB (CK-2) % Not Reportable Troponin I < 0.02 B-Natriuretic Peptide Serum Total Protein 7.1 Albumin 3.9 Globulin 3.2 Albumin/Globulin Ratio 1.2 09/30/18 10:01 WBC RBC Hgb Hct MCV MCH MCHC RDW Plt Count MPV Absolute Neuts (auto) Absolute Lymphs (auto) Absolute Monos (auto) Absolute Eos (auto) Absolute Basos (auto) Neutrophils % Lymphocytes % Monocytes % Eosinophils % Basophils % PT INR PTT (SP) Sodium Potassium Chloride Carbon Dioxide Anion Gap BUN Creatinine BUN/Creatinine Ratio Random Glucose Serum Osmolality Calcium Magnesium Total Bilirubin AST ALT Alkaline Phosphatase Creatine Kinase CK-MB (CK-2) CK-MB (CK-2) % Troponin I B-Natriuretic Peptide 7.4 Serum Total Protein Albumin Globulin Albumin/Globulin Ratio 09/30/18 11:37 Troponin negative. EKG unremarkable. Likely unstable angina. Patient received nitropaste without resolution of symptoms and ASA 34 mg po x one. Transferred to [facility] for unstable angina. Departure - Departure Clinical Impression: Unstable angina Disposition: Transfer to Hospital Condition: Fair Departure Forms: ED Discharge - Pt. Copy, Patient Portal Self Enrollment Instructions: DI for Chest Pain Diet: other - NPO Activity: other Referrals: MAMI ALMEIDA IV, HERBOLOGIST [Primary Care Provider] - 1-2 Weeks Home Medications: Ambulatory Orders Clonazepam [Klonopin] 2 mg PO TID 04/15/14 Zolpidem Tartrate [Ambien] 10 mg PO BEDTIME 06/02/15 tiZANidine [Zanaflex] 4 mg PO Q8H PRN 06/03/15 Tramadol HCl [Ultram] 100 mg PO Q6HRS PRN #30 tab 11/08/15 Gabapentin [Neurontin] 600 mg PO TID #0 05/31/16 HYDROcodone 10MG/APAP 325MG [[place] 10/325] 1 tab PO Q6H PRN 05/31/16 Insulin Detemir [Levemir Pen] 10 unit SUBCU BEDTIME 05/31/16 Liraglutide [Victoza] 1.8 mg SC DAILY 05/31/16 Meclizine HCl 25 mg PO BID PRN #30 tab 05/31/16 Omeprazole Magnesium [Prilosec Otc] 20 mg PO QAM #30 tab 05/31/16
[2018-09-30] MEDS ORDERED: ACETAMINOPHEN 325 MG TAB PO ONE (11:41)
[2018-09-30 12:28] VITALS: TEMP 98.2
[2018-09-30 13:35] VITALS: BP 99/72; O2SAT 98
== END 2018-09-30 12:45 | disposition short-term general hospital (02) ==
LOC: ER 09:32
DX: I20.0 Unstable angina (principal); R42 Dizziness and giddiness; J44.9 Chronic obstructive pulmonary disease, unspecified; I50.9 Heart failure, unspecified; E11.9 Type 2 diabetes mellitus without complications; K21.9 Gastro-esophageal reflux disease without esophagitis; Z87.891 Personal history of nicotine dependence; Z79.4 Long term (current) use of insulin; Z79.899 Other long term (current) drug therapy; Z88.1 Allergy status to other antibiotic agents; Z88.2 Allergy status to sulfonamides
CPT/HCPCS: 36415; 71045; 80053; 82550; 82553; 83735; 83880; 84484; 85025; 85610; 85730; 93005; J2405

== ENCOUNTER 2018-10-19 17:43 | Emergency (ER) | payer MEDICARE, MEDICAID ==
[2018-10-19 17:55] VITALS: TEMP 97.8
[2018-10-19] MEDS: diphenhydrAMINE HCL 25 MG CAP PO ONE (18:20)
[2018-10-19] MEDS: KETOROLAC TROMETHAMINE INJ 60 MG/2 ML VIAL IM ONE (18:21)
[2018-10-19] MEDS: PROMETHAZINE HCL INJ 25 MG/ML VIAL IM ONE (18:23)
[2018-10-19] MEDS: diazePAM 5 MG TAB PO ONE (19:27)
[2018-10-19] MEDS: predniSONE 20 MG TAB PO ONE (19:27)
[2018-10-19 20:13] VITALS: O2SAT 96
--- NOTE | 2018-10-19 20:35 | ED.PDOC ---
History of Present Illness - General Chief Complaint: Headache Stated Complaint: migraine,nausea,allergic reaction Time Seen by Provider: 10/19/18 17:44 Source: patient Exam Limitations: no limitations - History of Present Illness Initial Comments: the patient's a 48-year-old female presenting to the emergency room secondary to persistent migraine headache that she has had since around 10 AM that has not been responsive to her normal migraine medications or hydrocodone. Additionally she is presenting because she took an Excedrin Migraine tablet and then started having significant itching within about 30 minutes after taking it. No hives. No respiratory difficulty. No altered mental status. Vital signs are stable. She gets migraines about every 3 or 4 months. The characteristics of this one are not unusual for her. No focal neurological changes. Severity: moderate Improving Factors: nothing Worsening Factors: nothing Associated Symptoms: headaches Allergies/Adverse Reactions: Allergies Levofloxacin [From Levaquin] Allergy (Intermediate, Verified 09/30/18 10:05) Rash Metronidazole [From Flagyl] Allergy (Verified 09/30/18 10:05) Sulfa Drugs Allergy (Verified 09/30/18 10:05) Home Medications: Ambulatory Orders Clonazepam [Klonopin] 2 mg PO TID 04/15/14 Zolpidem Tartrate [Ambien] 10 mg PO BEDTIME 06/02/15 tiZANidine [Zanaflex] 4 mg PO Q8H PRN 06/03/15 Tramadol HCl [Ultram] 100 mg PO Q6HRS PRN #30 tab 11/08/15 Gabapentin [Neurontin] 600 mg PO TID #0 05/31/16 HYDROcodone 10MG/APAP 325MG [[place] 10/325] 1 tab PO Q6H PRN 05/31/16 Insulin Detemir [Levemir Pen] 10 unit SUBCU BEDTIME 05/31/16 Liraglutide [Victoza] 1.8 mg SC DAILY 05/31/16 Meclizine HCl 25 mg PO BID PRN #30 tab 05/31/16 Omeprazole Magnesium [Prilosec Otc] 20 mg PO QAM #30 tab 05/31/16 Review of Systems - Review of Systems Constitutional: States: malaise EENTM: States: no symptoms reported Respiratory: States: no symptoms reported Cardiology: States: no symptoms reported Gastrointestinal/Abdominal: States: nausea Genitourinary: States: no symptoms reported Musculoskeletal: States: no symptoms reported Skin: States: no symptoms reported Neurological: States: anxiety, headache Endocrine: States: no symptoms reported All other Systems: No Change from Baseline Past Medical History (General) - Patient Medical History Hx Seizures: No Hx Stroke: No Hx Dementia: No Hx Asthma: No Hx of COPD: Yes Hx Cardiac Disorders: No Hx Congestive Heart Failure: Yes Hx Pacemaker: No Hx Hypertension: No Hx Thyroid Disease: No Hx Diabetes: No Hx Gastroesophageal Reflux: Yes Hx Renal Disease: No Hx Cancer: No Hx of HIV: No Hx Hepatitis C: No Hx MRSA: Yes MRSA Source:: Wound - Vaccination History Hx Tetanus, Diphtheria Vaccination: Yes Hx Influenza Vaccination: Yes Hx Pneumococcal Vaccination: Yes - Social History Hx Tobacco Use: Yes Hx Chewing Tobacco Use: No Hx Alcohol Use: Yes Hx Substance Use: No Hx Substance Use Treatment: No Hx Depression: No Hx Physical Abuse: No Hx Emotional Abuse: No Hx Suspected Abuse: No - Female History Patient : No - Complete hysterectomy Family Medical History - Family History Mother Family History: Unknown Living Status: Hx Cardiac Disease: Yes Hx Family Diabetes: Yes Physical Exam - Physical Exam General Appearance: Alert, Anxious Eye Exam: bilateral normal Ears, Nose, Throat: hearing grossly normal, normal ENT inspection, normal pharynx Neck: full range of motion, supple Respiratory: lungs clear, normal breath sounds, no respiratory distress, no accessory muscle use Cardiovascular/Chest: normal peripheral pulses, regular rate, rhythm, no edema Peripheral Pulses: radial,right: 2+, radial,left: 2+, dorsalis pedis,right: 2+, dorsalis pedis,left: 2+ Gastrointestinal/Abdominal: non tender, soft Rectal Exam: deferred Back Exam: normal inspection, no CVA tenderness, no vertebral tenderness Extremity: normal range of motion, non-tender, normal inspection, no pedal edema, normal capillary refill Neurologic: electric detector operator II-XII nml as tested, alert, normal mood/affect, oriented x 3 Skin Exam: normal color Comments: Vital Signs - 24 hr 10/19/18 10/19/18 10/19/18 17:52 18:43 18:54 Temperature 97.8 F Pulse Rate [ 88 79 72 Left Brachial] Respiratory 20 18 18 Rate Blood Pressure 141/98 93/67 93/67 [Left Arm] O2 Sat by Pulse 98 96 94 L Oximetry 10/19/18 10/19/18 19:00 20:00 Temperature Pulse Rate [ 76 65 Left Brachial] Respiratory 18 18 Rate Blood Pressure 107/64 96/59 [Left Arm] O2 Sat by Pulse 95 96 Oximetry Progress - Progress Progress: 10/19/18 20:37 the patient is a 48-year-old female presenting to the emergency room secondary to a persistent migraine headache and what appears to be a mild allergic reaction to something in Excedrin migraine. the patient has responded fairly well to medications. She will be allowed to go home and sleep off the headache. I would encourage her in a few days once all her symptoms have resolved to take a small test dose of aspirin to see if she is developing an allergy to it. Keep routine follow up with primary care doctor otherwise. Keep Benadryl on hand for any future allergic reactions. Keep well hydrated. ER warnings were given. Departure - Departure Clinical Impression: Allergic reaction caused by a drug Qualifiers: Encounter type: initial encounter Qualified Code(s): T78.40XA - Allergy, unspecified, initial encounter Migraine headache Qualifiers: Migraine type: unspecified Status migrainosus presence: without status migrainosus Intractability: not intractable Qualified Code(s): G43.909 - M igraine, unspecified, not intractable, without status migrainosus Disposition: Discharge to Home or Self Care Condition: Fair Departure Forms: ED Discharge - Pt. Copy, Patient Portal Self Enrollment Diet: regular diet Activity: increase activity as tolerated Referrals: MAMI ALMEIDA IV, PLANNING CONSULTANT [Primary Care Provider] - 1-2 Weeks Home Medications: Ambulatory Orders Clonazepam [Klonopin] 2 mg PO TID 04/15/14 Zolpidem Tartrate [Ambien] 10 mg PO BEDTIME 06/02/15 tiZANidine [Zanaflex] 4 mg PO Q8H PRN 06/03/15 Tramadol HCl [Ultram] 100 mg PO Q6HRS PRN #30 tab 11/08/15 Gabapentin [Neurontin] 600 mg PO TID #0 05/31/16 HYDROcodone 10MG/APAP 325MG [[place] 10/325] 1 tab PO Q6H PRN 05/31/16 Insulin Detemir [Levemir Pen] 10 unit SUBCU BEDTIME 05/31/16 Liraglutide [Victoza] 1.8 mg SC DAILY 05/31/16 Meclizine HCl 25 mg PO BID PRN #30 tab 05/31/16 Omeprazole Magnesium [Prilosec Otc] 20 mg PO QAM #30 tab 05/31/16 Additional Instructions: the patient is a 48-year-old female presenting to the emergency room secondary to a persistent migraine headache and what appears to be a mild allergic reaction to something in Excedrin migraine. the patient has responded fairly well to medications. She will be allowed to go home and sleep off the headache. I would encourage her in a few days once all her symptoms have resolved to take a small test dose of aspirin to see if she is developing an allergy to it. Keep routine follow up with primary care doctor otherwise. Keep Benadryl on hand for any future allergic reactions. Keep well hydrated. ER warnings were given.
[2018-10-19] MEDS: ONDANSETRON ODT 8 MG TAB SL ONE (20:41)
[2018-10-19] MEDS: MORPHINE SULFATE INJ 10 MG/ML VIAL IM ONE ×2 (20:42→20:44)
[2018-10-19 20:57] VITALS: BP 98/69
== END 2018-10-19 20:55 | disposition home or self-care (01) ==
LOC: ER 17:43
DX: G43.909 Migraine, unspecified, not intractable, without status migrainosus (principal); L29.9 Pruritus, unspecified; T50.995A Adverse effect of other drugs, medicaments and biological substances, initial encounter; J44.9 Chronic obstructive pulmonary disease, unspecified; I50.9 Heart failure, unspecified; K21.9 Gastro-esophageal reflux disease without esophagitis; Z87.891 Personal history of nicotine dependence; Z79.899 Other long term (current) drug therapy; Z88.1 Allergy status to other antibiotic agents; Z88.8 Allergy status to other drugs, medicaments and biological substances; Z88.2 Allergy status to sulfonamides; Z79.4 Long term (current) use of insulin
CPT/HCPCS: J1885; J2270; J2550; J7512; Q0163

== ENCOUNTER 2019-08-26 22:50 | Observation (INO) | payer MEDICARE, OTHER ==
[2019-08-26] MEDS ORDERED: ASPIRIN TABLET 325 MG TAB PO ONE (23:05)
--- NOTE | 2019-08-26 23:07 | ED.PDOC ---
History of Present Illness - General Chief Complaint: Chest Pain/MO Time Seen by Provider: 08/26/19 23:04 Additional Information: Is a 49-year-old female, smoker history of COPD history of congestive heart failure, with ejection fraction of 35%, patient presents to the ER because around 4 PM she felt like little flutter on her chest, she took 1 nitro went to bed, the around 9 PM had the same symptoms took a nitro and then decided to come in. Patient admitted some mild shortness of breath and nausea prior to arrival to the ER She has no stent in her heart but she admits that somebody told her that she did have a heart attack in the past, - History of Present Illness Timing/Duration: intermittent Severity/Quality: mild, other - flutter Location: substernal Chest Pain Radiation: no radiation Activities at Onset: none Improving Factors: medication Worsening Factors: nothing Nitro Today/Relief: 0.4 mg x 2 Associated Symptoms: nausea/vomiting Allergies/Adverse Reactions: Allergies Levofloxacin [From Levaquin] Allergy (Intermediate, Verified 09/30/18 10:05) Rash Metronidazole [From Flagyl] Allergy (Verified 08/26/19 23:26) Sulfa Drugs Allergy (Verified 08/26/19 23:26) Home Medications: Ambulatory Orders Clonazepam [Klonopin] 2 mg PO TID 04/15/14 Zolpidem Tartrate [Ambien] 10 mg PO BEDTIME 06/02/15 tiZANidine [Zanaflex] 4 mg PO Q8H PRN 06/03/15 Tramadol HCl [Ultram] 100 mg PO Q6HRS PRN #30 tab 11/08/15 Gabapentin [Neurontin] 600 mg PO TID #0 05/31/16 HYDROcodone 10MG/APAP 325MG [[place] 10/325] 1 tab PO Q6H PRN 05/31/16 Insulin Detemir [Levemir Pen] 10 unit SUBCU BEDTIME 05/31/16 Liraglutide [Victoza] 1.8 mg SC DAILY 05/31/16 Meclizine HCl 25 mg PO BID PRN #30 tab 05/31/16 Omeprazole Magnesium [Prilosec Otc] 20 mg PO QAM #30 tab 05/31/16 Review of Systems - Review of Systems Constitutional: States: no symptoms reported EENTM: States: no symptoms reported Respiratory: States: no symptoms reported Cardiology: States: chest pain Gastrointestinal/Abdominal: States: no symptoms reported Genitourinary: States: no symptoms reported Musculoskeletal: States: no symptoms reported Skin: States: no symptoms reported Neurological: States: no symptoms reported Endocrine: States: no symptoms reported Hematologic/Lymphatic: States: no symptoms reported Past Medical History (General) - Patient Medical History Hx Seizures: No Hx Stroke: No Hx Dementia: No Hx Asthma: No Hx of COPD: Yes Hx Cardiac Disorders: No Hx Congestive Heart Failure: Yes Hx Pacemaker: No Hx Hypertension: No Hx Thyroid Disease: No Hx Diabetes: No Hx Gastroesophageal Reflux: Yes Hx Renal Disease: No Hx Cancer: No Hx of HIV: No Hx Hepatitis C: No Hx MRSA: Yes MRSA Source:: Wound - Vaccination History Hx Tetanus, Diphtheria Vaccination: Yes Hx Influenza Vaccination: Yes Hx Pneumococcal Vaccination: Yes - Social History Hx Tobacco Use: Yes Hx Chewing Tobacco Use: No Hx Alcohol Use: Yes Hx Substance Use: No Hx Substance Use Treatment: No Hx Depression: No Hx Physical Abuse: No Hx Emotional Abuse: No Hx Suspected Abuse: No - Female History Patient : No - Complete hysterectomy Family Medical History - Family History Mother Family History: Unknown Living Status: Hx Cardiac Disease: Yes Hx Family Diabetes: Yes Physical Exam - Physical Exam General Appearance: Alert, Well Developed, Well Groomed, Well Hydrated, Well Nourished Eyes, Ears, Nose, Throat Exam: normal ENT inspection, TMs normal, pharynx normal Neck: non-tender, full range of motion, supple, normal inspection Respiratory: chest non-tender, lungs clear, normal breath sounds, no respiratory distress, no accessory muscle use Cardiovascular/Chest: normal peripheral pulses, regular rate, rhythm, no edema, no gallop, no JVD, no murmur Gastrointestinal/Abdominal: normal bowel sounds, non tender, soft, no organomegaly, no pulsatile mass Extremity: normal range of motion, non-tender, normal inspection, no pedal edema Neurologic: major gifts manager II-XII nml as tested, no motor/sensory deficits, alert, normal mood/affect, oriented x 3 Skin Exam: normal color Lymphatic: no adenopathy Progress - Progress Progress: 08/26/19 23:55 This a patient with multiple risk factor for acute coronary syndrome with ejection fraction 35% she still smoking history of COPD, EKG did not show any acute ischemic changes, first her troponins were negative troponins were also negative, and a chest x-ray that did not show any weatherman starting to suggest aortic dissection. Patient blood pressure was low but patient does not appear toxic and she did take 2 nitros prior to arrival we gave her a liter of normal saline to improve her blood pressure and consult case with the hospitalist for admission for chest pain work-up Departure - Departure Clinical Impression: Chest pain Qualifiers: Chest pain type: chest pain due to myocardial ischemia Ischemic chest pain type: unstable angina pectoris Qualified Code(s): I20.0 - Unstable angina Disposition: Admit Patient Referrals: MAMI ALMEIDA IV, RIG HAND [Primary Care Provider] - 1-2 Weeks Home Medications: Ambulatory Orders Clonazepam [Klonopin] 2 mg PO TID 04/15/14 Zolpidem Tartrate [Ambien] 10 mg PO BEDTIME 06/02/15 tiZANidine [Zanaflex] 4 mg PO Q8H PRN 06/03/15 Tramadol HCl [Ultram] 100 mg PO Q6HRS PRN #30 tab 11/08/15 Gabapentin [Neurontin] 600 mg PO TID #0 05/31/16 HYDROcodone 10MG/APAP 325MG [[place] 10/325] 1 tab PO Q6H PRN 05/31/16 Insulin Detemir [Levemir Pen] 10 unit SUBCU BEDTIME 05/31/16 Liraglutide [Victoza] 1.8 mg SC DAILY 05/31/16 Meclizine HCl 25 mg PO BID PRN #30 tab 05/31/16 Omeprazole Magnesium [Prilosec Otc] 20 mg PO QAM #30 tab 05/31/16 Decision To Admit - Decistion To Admit Decision to Admit Reason: Admit from ER Decision to Admit Date: 08/26/19 Decision to Admit Time: 23:56
--- NOTE | 2019-08-26 23:33 | RAD ---
EXAM DESCRIPTION: Chest,1 View CLINICAL HISTORY: 49 years Female, chest pain COMPARISON: 09/30/2018 TECHNIQUE: Single AP chest radiograph. FINDINGS: Clear lungs. No pneumothorax or pleural effusion. Normal cardiomediastinal contour. Normal osseous structures. IMPRESSION: 1. No acute cardiopulmonary process. Electronically signed by: Pk Schmitz MD 08/26/2019 11:32 PM CDT
[2019-08-26] MEDS ORDERED: ONDANSETRON ODT 8 MG TAB SL ONE (23:37)
[2019-08-27] MEDS ORDERED: SODIUM CHLORIDE 0.9% (FLUSH) 10 ML SYG ONE (00:05)
[2019-08-27] MEDS ORDERED: SODIUM CHLORIDE 0.9% 1000ML 1,000 ML IVS ONE (00:13)
[2019-08-27] MEDS ORDERED: PROMETHAZINE HCL INJ 12.5 MG in SODIUM CHLORIDE 0.9% 50ML 50 ML IVPB ONE (01:48)
[2019-08-27] MEDS ORDERED: NITROGLYCERIN 0.4 MG 25 EA TAB SL PRN (02:17)
[2019-08-27] MEDS ORDERED: SODIUM CHLORIDE 0.9% (FLUSH) 10 ML SYG IV PRN (02:17)
[2019-08-27] MEDS ORDERED: MORPHINE SULFATE INJ 10 MG/ML VIAL IV PRN (02:17)
[2019-08-27] MEDS ORDERED: POTASSIUM CHLORIDE 20 MEQ TAB PO ONE (02:20)
--- NOTE | 2019-08-27 02:23 | HP ---
SUPERVISING PHYSICIAN: Cesar Daigle MD CHIEF COMPLAINT: Chest pain. HISTORY OF PRESENT ILLNESS: This is a 49-year-old female who states that around 4 o'clock yesterday afternoon, she felt a little bit of fluttering in her chest. For that reason, she took some nitroglycerin and went to bed, but then got dizzy last night around 10 o'clock. Around that time, she had some fluttering in her chest again, so she took some more nitroglycerin and came to the hospital. She never got syncopal, but felt she was near syncopal. She does state she has seen a geek squad manager in the past and was told she has about 30% ejection fraction, but never had any stents placed and may have had a heart attack in the past. In the ER, she had negative troponin and EKG did not show any acute findings. For that reason, she was referred for observation and chest pain rule out. At the time of examination this morning, she is alert and complains of a headache, but no chest pain or fluttering at this time. PAST MEDICAL HISTORY: 1. Cardiomyopathy. 2. Possible myocardial infarction. 3. Chronic back pain. 4. Chronic obstructive pulmonary disease. 5. Reflux. 6. Depression. PAST SURGICAL HISTORY: 1. Three back surgeries. 2. Hysterectomy. 3. Two C-sections. 4. Appendectomy. 5. Tonsillectomy. 6. Right knee cyst removal. 7. Right hand cyst removal. MEDICATIONS: 1. Albuterol HFA 2 puffs p.r.n. wheezing. 2. Symbicort 160/4.5 1 puff b.i.d. 3. BuSpar 20 mg p.o. b.i.d. 4. Hydrocodone 10/325 p.o. q.i.d. 5. Singulair 10 mg p.o. q.p.m. 6. Prilosec 40 mg p.o. q.a.m. 7. Zanaflex 4 mg p.o. t.i.d. 8. Viibryd 20 mg p.o. daily. 9. Neurontin 600 mg p.o. t.i.d. ALLERGIES: METRONIDAZOLE, SULFA DRUGS. FAMILY HISTORY: Reviewed. She has no family history of any heart disease or hypertension. SOCIAL HISTORY: The patient is a smoker, but nondrinker, no illicit drugs. REVIEW OF SYSTEMS: CONSTITUTIONAL: No fever or chills. No recent weight loss or weight gain. HEENT: Positive for headache. No vision changes, ear pain, nasal congestion or throat pain. RESPIRATORY: No cough, hemoptysis or pleuritic chest pain. CARDIOVASCULAR: Positive for chest pain and fluttering in the middle of her chest, but the way she describes it, it does not sound a lot like palpitations. No peripheral edema. GASTROINTESTINAL: No nausea, vomiting, diarrhea, constipation or abdominal pain. GENITOURINARY: No dysuria, frequency or flank pain. ENDOCRINE: No polydipsia, polyuria or polyphagia. No heat or cold intolerance. NEUROLOGIC: Positive for some dizziness. No syncope or paresthesias. PHYSICAL EXAMINATION: VITAL SIGNS: Blood pressure 99/64, heart rate 60, respiratory rate 16, temperature 97.8, oxygen saturation 99%. GENERAL: Ms. Bowles is a 49-year-old female in no active distress. NEUROLOGIC: The patient is alert. LUNGS: Clear to auscultation bilaterally. CARDIOVASCULAR: Regular rate and rhythm. Normal S1, S2. ABDOMEN: Soft. Positive bowel sounds. GENITOURINARY: Deferred. EXTREMITIES: Lower extremities with no edema. LABORATORY: She has a low potassium of 3.1, glucose 187. Other labs are unremarkable. RADIOLOGY: Chest x-ray shows no acute findings. EKG shows normal sinus rhythm with a QTC of 390, TN interval 194, rate 61. ASSESSMENT: 1. Chest pain, rule out acute coronary syndrome. 2. Near syncopal episode. 3. Hypokalemia. 4. History of cardiomyopathy with no documented history of coronary artery disease. 5. Chronic pain syndrome. 6. Hypotension. PLAN: The patient will complete her chest pain rule out with serial EKGs as well as cardiac enzymes. She denies any chest pain right now and complains of a headache likely secondary to the nitroglycerin from earlier. We will resume her home medications. If all of her enzymes are negative, she can be discharged with instructions to followup with her geek squad manager. Her blood pressure is marginal. She was given fluids in the ER, and BP remains in the 90s. Will consider echocardiogram if BP remains low. #[id number] [facility]
[2019-08-27] MEDS ORDERED: IV SET AND CAP CHANGE INJ INJ SCH (02:30)
[2019-08-27] MEDS: ACETAMINOPHEN 325 MG TAB PO PRN ×2 (03:02→19:03)
[2019-08-27] MEDS ORDERED: HYDROcodone 5MG/APAP 325MG 1 EA TAB ONE (08:40)
[2019-08-27] MEDS ORDERED: ALBUTEROL INHALER 64 PUFF/8GM INH PRN (08:40)
[2019-08-27] MEDS: HYDROcodone 10MG/APAP 325MG 1 EA TAB PO SCH ×3 (08:48→16:15)
[2019-08-27] MEDS ORDERED: VILAZODONE HCL 20 MG PO SCH (09:00)
[2019-08-27] MEDS ORDERED: OMEPRAZOLE CAP 20 MG CAP PO SCH (09:00)
[2019-08-27] MEDS: busPIRone HCL 5 MG TAB PO SCH (09:42)
[2019-08-27] MEDS: tiZANidine 4 MG TAB PO SCH ×2 (09:43→14:14)
[2019-08-27] MEDS: GABAPENTIN 300 MG CAP PO SCH ×2 (09:43→14:14)
[2019-08-27] MEDS: SODIUM CHLORIDE 0.9% (FLUSH) 10 ML SYG IV SCH ×2 (09:43→20:45)
[2019-08-27] MEDS: BUDESONIDE/FORMOTEROL 160/4.5 60 PUFF/6 GM INH INH SCH ×2 (10:00→21:10)
[2019-08-27] MEDS ORDERED: LACTATED RINGERS 1,000 ML IVS ONE (10:40)
[2019-08-27] MEDS ORDERED: LACTATED RINGERS 500 ML IVS ONE (20:03)
[2019-08-27] MEDS ORDERED: LACTATED RINGERS 1,000 ML ONE (20:11)
[2019-08-27] MEDS ORDERED: MONTELUKAST 10 MG TAB PO SCH (21:00)
[2019-08-27 23:06] VITALS: BP 76/41; TEMP 97.4; O2SAT 100
[2019-08-28] MEDS: busPIRone HCL 5 MG TAB PO SCH (00:15)
[2019-08-28] MEDS: GABAPENTIN 300 MG CAP PO SCH (00:16)
[2019-08-28] MEDS: tiZANidine 4 MG TAB PO SCH (00:17)
--- NOTE | 2019-08-28 08:04 | DS ---
SUPERVISING PHYSICIAN: Cesar Daigle MD DISCHARGE DIAGNOSIS: 1. Hypotension. 2. Bradycardia. 3. Chest pain, rule out acute coronary syndrome with consecutive negative troponins and normal EKGs. 4. Chronic pain syndrome. 5. Reported cardiomyopathy with an ejection fraction of 30% per the patient. 6. Near syncope. HOSPITAL COURSE: This is a 49-year-old female who came to the Emergency Room last night with some chest pain. Her workup in the ER had included cardiac enzymes, which were negative, an EKG, which was unremarkable. In the ER, she was marginally hypotensive with blood pressure in the 80s. She was given a fluid bolus and her blood pressures did improve a little bit, but then went back down into the 80s. However, she was admitted for chest pain rule out. Over the day, she had three consecutive negative troponins and her EKG was unremarkable. She had no further chest pain, but throughout the day, her blood pressure has been still on the low side. It has been in the 80s and 90s systolic. I have given bolus fluids and there has not been any significant improvement. Additionally, her heart rate has gotten as low as 46. She is not on any medications to cause this. Her TSH is within normal limits. She did have an echocardiogram, but I do not have the results of that as of yet. Due to the persistent hypotension that is refractory to IV fluids and concern for the bradycardia, I have called [facility] for transfer for higher level of care. I spoke with Robel Romano in the Emergency Room and he has accepted the patient. Further care will be initiated by [facility]. #[id number] [facility]
[2019-08-28] MEDS ORDERED: ASPIRIN TABLET 325 MG TAB PO SCH (09:00)
== END 2019-08-27 22:48 | disposition short-term general hospital (02) ==
LOC: ER 22:50 → MS 08-27 02:22
PROVIDERS: ADMIT Nurse Practitioner; ATTEND Nurse Practitioner
DX: I95.9 Hypotension, unspecified (principal); R00.1 Bradycardia, unspecified; R07.2 Precordial pain; G89.4 Chronic pain syndrome; I42.9 Cardiomyopathy, unspecified; R55 Syncope and collapse; E87.6 Hypokalemia; R11.2 Nausea with vomiting, unspecified; I50.9 Heart failure, unspecified; J44.9 Chronic obstructive pulmonary disease, unspecified; K21.9 Gastro-esophageal reflux disease without esophagitis; F32.9 Major depressive disorder, single episode, unspecified; F17.210 Nicotine dependence, cigarettes, uncomplicated; Z79.51 Long term (current) use of inhaled steroids; Z79.891 Long term (current) use of opiate analgesic; Z79.4 Long term (current) use of insulin; Z79.899 Other long term (current) drug therapy; Z88.1 Allergy status to other antibiotic agents; Z88.2 Allergy status to sulfonamides
CPT/HCPCS: 96361; 96365; J2550; J7030; A4216 ×4; J7120 ×2; 80048; 82553 ×3; 80053; 80307; 80061; 36415 ×5; 81001; 85025; 82550 ×3; 84443; 84484 ×4; 83880; 71045; 94664; 99285; 93307; 93005 ×3; G0378

== ENCOUNTER 2019-10-27 16:36 | Emergency (ER) | payer MEDICARE, OTHER ==
[2019-10-27] MEDS ORDERED: SODIUM CHLORIDE 0.9% 500ML 500 ML IVS ONE (17:11)
[2019-10-27] MEDS ORDERED: KETOROLAC TROMETHAMINE INJ 30 MG/ML VIAL IV ONE (17:11)
[2019-10-27] MEDS ORDERED: METOCLOPRAMIDE HCL INJ 10 MG/2 ML VIAL IV ONE (17:12)
[2019-10-27] MEDS ORDERED: diphenhydrAMINE HCL 50 MG/ML VIAL IV STA (17:12)
--- NOTE | 2019-10-27 17:22 | ED.PDOC ---
History of Present Illness - General Chief Complaint: Headache Stated Complaint: Headache, N/V, SOB Time Seen by Provider: 10/27/19 17:10 Source: patient, family Additional Information: The patient is a 49 year old with PMH significant for COPD, CHF, DM, GERD, Depression and migraines who presents for headache. She states that her headache started this morning around 0600 when she woke. She complains of diffuse head ache. No history of trauma or fever. No neck pain. She does not have any focal neurologic deficits or complaints. She states that she has associated nausea and vomiting. Has taken tylenol without relief. She says that she has a history of migraine headaches but that this headache feels different. She complains of generalized rather than her usual frontal headache. She does not have photophobia or phonophobia. No other complaints at this time. - History of Present Illness Allergies/Adverse Reactions: Allergies Metronidazole [From Flagyl] Allergy (Verified 10/27/19 17:05) Sulfa Drugs Allergy (Verified 10/27/19 17:05) Home Medications: Ambulatory Orders tiZANidine [Zanaflex] 4 mg PO TID 06/03/15 Gabapentin [Neurontin] 600 mg PO TID #0 05/31/16 HYDROcodone 10MG/APAP 325MG [[place] 10/325] 1 tab PO QID 05/31/16 Albuterol Sulfate [Proair Hfa] 108 mcg IN PRN PRN 08/27/19 Budesonide-Formoterol Fumarate [Symbicort] 1 aer IN PRN PRN 08/27/19 Montelukast [Singulair] 10 mg PO QPM 08/27/19 Omeprazole Magnesium [Prilosec Otc] 40 mg PO QAM 08/27/19 Vilazodone HCl [Viibryd] 20 mg PO DAILY 08/27/19 busPIRone HCL [Buspar] 20 mg PO BID 08/27/19 Gcitynodjn-Tuvkbvotzbeqj-Jgblm [Fioricet] 1 cap PO Q4HR #20 cap 10/27/19 Ondansetron HCl [Zofran] 4 mg PO Q6HRS #14 tab 10/27/19 Review of Systems - Review of Systems Constitutional: Denies: chills, fever, malaise EENTM: States: no symptoms reported Respiratory: Denies: cough, short of breath Cardiology: States: chest pain. Denies: palpitations Gastrointestinal/Abdominal: States: nausea, vomiting. Denies: abdominal pain, diarrhea Genitourinary: Denies: dysuria, frequency, hematuria Skin: States: no symptoms reported Neurological: States: headache. Denies: numbness, paresthesia, pre-existing deficit, tingling, weakness All other Systems: Reviewed and Negative Past Medical History (General) - Patient Medical History Hx Seizures: No Hx Stroke: No Hx Dementia: No Hx Asthma: No Hx of COPD: Yes Hx Cardiac Disorders: No Hx Congestive Heart Failure: Yes Hx Pacemaker: No Hx Hypertension: Yes Hx Thyroid Disease: No Hx Diabetes: Yes Hx Gastroesophageal Reflux: Yes Hx Renal Disease: No Hx Cancer: No Hx of HIV: No Hx Hepatitis C: No Hx MRSA: No MRSA Source:: Wound Surgical History: Hysterectomy, other - Vaccination History Hx Tetanus, Diphtheria Vaccination: Yes Hx Influenza Vaccination: Yes Hx Pneumococcal Vaccination: Yes - Social History Hx Tobacco Use: Yes Hx Chewing Tobacco Use: No Hx Alcohol Use: No Hx Substance Use: No Hx Substance Use Treatment: No Hx Depression: No Hx Physical Abuse: No Hx Emotional Abuse: No Hx Suspected Abuse: No - Female History Patient is a Female of Child Bearing Age (10 -59 yrs old): Yes Patient : No - Hyst Family Medical History - Family History Mother Family History: Unknown Living Status: Hx Cardiac Disease: Yes Hx Family Diabetes: Yes Physical Exam - Physical Exam General Appearance: Comfortable, No apparent distress Eyes, Ears, Nose, Throat Exam: normal ENT inspection Neck: non-tender, full range of motion, supple, normal inspection Cardiovascular/Chest: regular rate, rhythm Respiratory: normal breath sounds, no respiratory distress, no accessory muscle use Gastrointestinal/Abdominal: non tender, soft Mental Status: alert, 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 x 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 Exam: normal hearing, normal speech, PERRL Coordination/Gait: normal finger to nose, normal gait Motor/Sensory: no motor deficit, no sensory deficit Skin Exam: warm/dry, normal color Progress - Progress Progress: 10/27/19 18:30 EKG STAT Laboratory Results - last 24 hr 10/27/19 10/27/19 10/27/19 17:22 17:22 17:22 WBC 6.0 RBC 3.62 L Hgb 12.7 Hct 36.6 MCV 101.1 H MCH 35.2 H MCHC 34.9 RDW 12.8 Plt Count 184 MPV 9.1 Absolute Neuts (auto) 3.80 Absolute Lymphs (auto) 1.70 Absolute Monos (auto) 0.40 Absolute Eos (auto) 0.00 Absolute Basos (auto) 0.00 Neutrophils % 64.0 Lymphocytes % 28.8 Monocytes % 6.1 Eosinophils % 0.6 L Basophils % 0.5 Sodium 137 Potassium 3.5 L Chloride 104 Carbon Dioxide 24 Anion Gap 12.5 BUN 9 Creatinine 0.73 BUN/Creatinine Ratio 12.3 Random Glucose 139 H Serum Osmolality 274.8 L Calcium 8.8 Troponin I < 0.02 10/27/19 19:14 Patient reassessed, she is tolerating PO without difficulty. Workup as above. Will continue outpatient symptomatic management and she will follow up with her primary care provider. Home care instructions and return indications reviewed. Departure - Departure Clinical Impression: Headache Qualifiers: Headache type: unspecified Headache chronicity pattern: unspecified pattern Intractability: not intractable Qualified Code(s): R51 - Headache Nausea and vomiting Qualifiers: Vomiting type: unspecified Vomiting Intractability: unspecified Qualified Code(s): R11.2 - Nausea with vomiting, unspecified Time of Disposition: 19:16 Disposition: Discharge to Home or Self Care Departure Forms: ED Discharge - Pt. Copy, Patient Portal Self Enrollment Instructions: DI for Headache, Nausea and Vomiting, Adult (DC), Migraines (DC) Diet: resume usual diet Activity: increase activity as tolerated Referrals: MAMI ALMEIDA IV, ROTOR CASTING MACHINE SETUP OPERATOR [Primary Care Provider] - 1-2 Weeks Prescriptions: Nsdfnwxhmu-Ecyqhsqincxyn-Sufra [Fioricet] 1 cap PO Q4HR #20 cap Ondansetron HCl [Zofran] 4 mg PO Q6HRS #14 tab Home Medications: Ambulatory Orders tiZANidine [Zanaflex] 4 mg PO TID 06/03/15 Gabapentin [Neurontin] 600 mg PO TID #0 05/31/16 HYDROcodone 10MG/APAP 325MG [[place] 10/325] 1 tab PO QID 05/31/16 Albuterol Sulfate [Proair Hfa] 108 mcg IN PRN PRN 08/27/19 Budesonide-Formoterol Fumarate [Symbicort] 1 aer IN PRN PRN 08/27/19 Montelukast [Singulair] 10 mg PO QPM 08/27/19 Omeprazole Magnesium [Prilosec Otc] 40 mg PO QAM 08/27/19 Vilazodone HCl [Viibryd] 20 mg PO DAILY 08/27/19 busPIRone HCL [Buspar] 20 mg PO BID 08/27/19 Hbjbktxftu-Oftysetuhivak-Srgkn [Fioricet] 1 cap PO Q4HR #20 cap 10/27/19 Ondansetron HCl [Zofran] 4 mg PO Q6HRS #14 tab 10/27/19
--- NOTE | 2019-10-27 18:33 | RAD ---
EXAM: Chest,1 View CLINICAL INDICATION: Chest pain COMPARISON: 08/26/2019 FINDINGS: A single view of the chest was obtained. The heart size is normal. The pulmonary vascularity is unremarkable. The lungs are clear. There is no consolidation, infiltrate, pleural effusion, or pneumothorax. IMPRESSION: No evidence of active pulmonary disease. Electronically signed by: Pk Stock MD 10/27/2019 6:32 PM CDT
--- NOTE | 2019-10-27 18:35 | CT ---
EXAM: CT head CLINICAL INDICATION: Headache COMPARISON: 06/04/2015 TECHNIQUE: The CT scan was done using contiguous axial 2.5 mm sections through the brain. This exam was performed according to our departmental dose-optimization program, which includes automated exposure control, adjustment of the mA and/or kV according to patient size and/or use of iterative reconstruction technique. FINDINGS: There is no midline shift, mass effect, or extraaxial fluid collection. There is no evidence of acute intracranial hemorrhage, mass lesion, or cerebral edema. The ventricles and cortical sulci are normal for the patient's age. Bone window images reveal no evidence of a skull fracture. IMPRESSION: No evidence of an acute intracranial process. Electronically signed by: Pk Stock MD 10/27/2019 6:33 PM CDT
[2019-10-27 19:38] VITALS: BP 118/80; TEMP 98.4; O2SAT 100
== END 2019-10-27 19:25 | disposition home or self-care (01) ==
LOC: ER 16:36
DX: R51 Headache (principal); R11.2 Nausea with vomiting, unspecified; R06.02 Shortness of breath; J44.9 Chronic obstructive pulmonary disease, unspecified; K21.9 Gastro-esophageal reflux disease without esophagitis; I50.9 Heart failure, unspecified; E11.9 Type 2 diabetes mellitus without complications; F32.9 Major depressive disorder, single episode, unspecified; Z79.899 Other long term (current) drug therapy; Z88.8 Allergy status to other drugs, medicaments and biological substances; Z88.2 Allergy status to sulfonamides
CPT/HCPCS: 36415; 70450; 71045; 80048; 84484; 85025; 93005; J1200; J1885; J2765; J7040

== ENCOUNTER 2019-11-01 15:57 | Emergency (ER) | payer MEDICARE, MEDICAID ==
[2019-11-01] MEDS ORDERED: ONDANSETRON INJ 4 MG/2 ML VIAL IV ONE ×2 (16:16→18:28)
[2019-11-01] MEDS ORDERED: SODIUM CHLORIDE 0.9% 1000ML 1,000 ML IVS PRN (16:16)
--- NOTE | 2019-11-01 16:41 | ED.PDOC ---
History of Present Illness - General Chief Complaint: Headache Stated Complaint: SOLIS,vomiting,diarrhea Time Seen by Provider: 11/01/19 16:15 - History of Present Illness Initial Comments: 49 yo F comes in with c/c of one week of muscle aches, body aches, n/v, headache. Denies sore throat, cough, shortness of breath or chest pain. Was seen here 5 days ago had a negative workup at that time. Had covid test done at doctors office unsure results. no known covid exposure. denies any known mosquito bites. 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 Allergies/Adverse Reactions: Allergies Metronidazole [From Flagyl] Allergy (Verified 10/27/19 17:05) Sulfa Drugs Allergy (Verified 10/27/19 17:05) Home Medications: Ambulatory Orders tiZANidine [Zanaflex] 4 mg PO TID 06/03/15 Gabapentin [Neurontin] 600 mg PO TID #0 05/31/16 HYDROcodone 10MG/APAP 325MG [[place] 10/325] 1 tab PO QID 05/31/16 Albuterol Sulfate [Proair Hfa] 108 mcg IN PRN PRN 08/27/19 Budesonide-Formoterol Fumarate [Symbicort] 1 aer IN PRN PRN 08/27/19 Montelukast [Singulair] 10 mg PO QPM 08/27/19 Omeprazole Magnesium [Prilosec Otc] 40 mg PO QAM 08/27/19 Vilazodone HCl [Viibryd] 20 mg PO DAILY 08/27/19 busPIRone HCL [Buspar] 20 mg PO BID 08/27/19 Mpafjnpgsw-Eylgquipkyetp-Erjuo [Fioricet] 1 cap PO Q4HR #20 cap 10/27/19 Ondansetron HCl [Zofran] 4 mg PO Q6HRS #14 tab 10/27/19 Review of Systems - Review of Systems Constitutional: States: fever, malaise, weakness. Denies: chills EENTM: Denies: double vision, ear discharge, nose congestion, throat swelling, mouth swelling Respiratory: Denies: cough, orthopnea, short of breath, stridor, wheezing Cardiology: Denies: chest pain, edema, palpitations, syncope Gastrointestinal/Abdominal: States: abdominal pain, nausea, vomiting. Denies: constipation, diarrhea Genitourinary: Denies: discharge, dysuria, frequency, hematuria Musculoskeletal: Denies: back pain, joint pain, joint swelling, muscle pain, muscle stiffness Neurological: States: headache. Denies: numbness, paresthesia, seizure, tingling, tremors, weakness Endocrine: Denies: unexplained weight gain, unexplained weight loss Hematologic/Lymphatic: Denies: anemia, blood clots, easy bleeding, easy bruising Past Medical History (General) - Patient Medical History Hx Seizures: No Hx Stroke: No Hx Dementia: No Hx Asthma: No Hx of COPD: Yes Hx Cardiac Disorders: No Hx Congestive Heart Failure: Yes Hx Pacemaker: No Hx Hypertension: Yes Hx Thyroid Disease: No Hx Diabetes: Yes Hx Gastroesophageal Reflux: Yes Hx Renal Disease: No Hx Cancer: No Hx of HIV: No Hx Hepatitis C: No Hx MRSA: No MRSA Source:: Wound Surgical History: Hysterectomy - Vaccination History Hx Tetanus, Diphtheria Vaccination: Yes Hx Influenza Vaccination: Yes Hx Pneumococcal Vaccination: Yes - Social History Hx Tobacco Use: Yes Hx Chewing Tobacco Use: No Hx Alcohol Use: No Hx Substance Use: No Hx Substance Use Treatment: No Hx Depression: No Hx Physical Abuse: No Hx Emotional Abuse: No Hx Suspected Abuse: No - Female History Patient : No - Hyst Family Medical History - Family History Mother Family History: Unknown Living Status: Hx Cardiac Disease: Yes Hx Family Diabetes: Yes Physical Exam - Physical Exam General Appearance: Alert, No apparent distress Eye Exam: bilateral normal, bilateral other - photophobia. Ears, Nose, Throat: hearing grossly normal, normal ENT inspection Neck: non-tender, full range of motion, supple, normal inspection Respiratory: chest non-tender, lungs clear, normal breath sounds, no respiratory distress, no accessory muscle use Cardiovascular/Chest: normal peripheral pulses, regular rate, rhythm, no edema, no gallop, no JVD, no murmur Peripheral Pulses: radial,right: 2+, radial,left: 2+ Gastrointestinal/Abdominal: normal bowel sounds, non tender, soft, no organomegaly Rectal Exam: deferred Back Exam: normal inspection, no CVA tenderness, no vertebral tenderness Extremity: normal range of motion, non-tender, normal inspection 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 unable to move it passive motion. Skin Exam: normal color, warm/dry Lymphatic: no adenopathy Progress - Progress Progress: 11/01/19 16:40 EKG Shows HR 73, NSR, nonspecific st changes no sign changes when compared to ekg on 08/26/19. CXR shows no acute disease. CT abd/pelvis negative for acute pathology. Blood work grossly unremrakable. Patient states she has a history of HF, last echo in August shoed normal wall motion, LVH, EF 65%. COvid test negative. Attempted zofran x2 and phenegran. Patient still PO intolerant. She has also been given morphine for pain. Due to interactions with viibryd held off on toradol for pain. 11/01/19 19:25 Due to neck pain, headache and photophobia will do LP to rule out encephalitis. LP procedure Consent was obtained from patient prior to the procedure. Indications, risks, and benefits were explained at length. A time-out was performed. My hands were washed immediately prior to the procedure. I wore a mask with protective eyewear, sterile gown and sterile gloves throughout the procedure. The patient was placed in the forward bend position with help from the nursing staff. The area was cleansed and draped in usual sterile fashion using betadine scrub. Anesthesia was achieved with 1% lidocaine. A 20-gauge 3.5-inch spinal needle was placed was not apple to get fluid return. I redirected needle and reposition patient but was unable to get a CSF fluid return. A sterile bandaid was placed over the puncture site. The patient had no immediate complications and tolerated the procedure well. Estimated blood loss was minimal. Due to the possibility of encephalitis will transfer to other ER where they have Radiology to help with LP. The data reviewed when caring for this patient included: nurse notes, prior records, etc. The history and assessments from nurses notes were reviewed and considered, and the patient's home medication list was also reviewed and considered. My assessment and the results of testing completed here in the ED were discussed with the patient. All questions were answered, and they express understanding of my assessment and the plan. VSS, patient was transferred in stable condition. Jenny Lemus 801 - Results/Orders Results/Orders: 11/01/19 16:16 Sodium Chloride 0.9% 1000ML [Ns 1000 ml] 1,000 ml IVS STAT 11/01/19 16:30 EKG STAT 11/01/19 17:25 Hold Metformin x 48Hrs [id number] 11/01/19 19:36 OVA & PARASITE EXAM Routine STOOL CULTURE Stat CRYPTOSPORIDIA AG,STOOL Stat LYME DIEASE AB TOTAL W/WB Stat NOROVIRUS,EIA STOOL Stat Laboratory Results WBC 5.6 K/mm3 (4.8-10.8) 11/01/19 16:30 RBC 3.77 M/mm3 (4.20-5.40) L 11/01/19 16:30 Hgb 13.5 gm/dL (12.0-16.0) 11/01/19 16:30 Hct 38.1 % (36.0-47.0) 11/01/19 16:30 MCV 101.1 fl (81.0-99.0) H 11/01/19 16:30 MCH 35.8 pg (27.0-31.0) H 11/01/19 16:30 MCHC 35.4 g/dL (33.0-37.0) 11/01/19 16:30 RDW 12.9 % (11.5-14.5) 11/01/19 16:30 Plt Count 191 K/mm3 (130-400) 11/01/19 16:30 MPV 8.7 fl (7.40-10.4) 11/01/19 16:30 Absolute Neuts (auto) 2.80 K/uL (1.8-6.8) 11/01/19 16:30 Absolute Lymphs (auto) 2.30 K/uL (1.0-3.4) 11/01/19 16:30 Absolute Monos (auto) 0.30 K/uL (0.2-0.8) 11/01/19 16:30 Absolute Eos (auto) 0.00 K/uL (0.0-0.4) 11/01/19 16:30 Absolute Basos (auto) 0.00 K/uL (0.0-0.1) 11/01/19 16:30 Neutrophils % 50.6 % (42.0-78.0) 11/01/19 16:30 Lymphocytes % 42.0 % (20.0-50.0) 11/01/19 16:30 Monocytes % 5.7 % (2.0-9.0) 11/01/19 16:30 Eosinophils % 0.9 % (1.0-5.0) L 11/01/19 16:30 Basophils % 0.8 % (0.0-2.0) 11/01/19 16:30 Sodium 141 mmol/L (135-145) 11/01/19 16:30 Potassium 3.4 mmol/L (3.6-5.0) L 11/01/19 16:30 Chloride 107 mmol/L (101-111) 11/01/19 16:30 Carbon Dioxide 26 mmol/L (21-31) 11/01/19 16:30 Anion Gap 11.4 (12-18) L 11/01/19 16:30 BUN 8 mg/dL (7-18) 11/01/19 16:30 Creatinine 0.85 mg/dL (0.6-1.3) 11/01/19 16:30 BUN/Creatinine Ratio 9.4 (10-20) L 11/01/19 16:30 Random Glucose 121 mg/dL (70-105) H 11/01/19 16:30 Serum Osmolality 280.8 mOsm/L (275-295) 11/01/19 16:30 Calcium 8.6 mg/dL (8.4-10.2) 11/01/19 16:30 Total Bilirubin 0.5 mg/dL (0.2-1.0) 11/01/19 16:30 AST 11 IU/L (10-42) 11/01/19 16:30 ALT < 8 IU/L (10-60) L 11/01/19 16:30 Alkaline Phosphatase 48 IU/L (42-121) 11/01/19 16:30 Creatine Kinase 48 IU/L (26-140) 11/01/19 16:30 Troponin I < 0.02 ng/mL (0.01-0.05) 11/01/19 16:30 Serum Total Protein 7.0 gm/dL (6.4-8.2) 11/01/19 16:30 Albumin 4.3 g/dl (3.2-5.5) 11/01/19 16:30 Globulin 2.7 gm/dL (2.3-3.5) 11/01/19 16:30 Albumin/Globulin Ratio 1.6 (1.1-1.9) 11/01/19 16:30 Lipase 48 U/L (22-51) 11/01/19 16:30 Urine Color Yellow (Yellow) 11/01/19 16:51 Urine Appearance Clear (Clear) 11/01/19 16:51 Urine pH 6.0 (4.5-7.8) 11/01/19 16:51 Ur Specific [place] <= 1.005 (1.005-1.030) 11/01/19 16:51 Urine Protein Negative mg/dL 11/01/19 16:51 Urine Glucose (UA) Negative mg/dL (Negative) 11/01/19 16:51 Urine Ketones Negative mg/dL (NEGATIVE) 11/01/19 16:51 Urine Blood Negative (Negative) 11/01/19 16:51 Urine Nitrite Negative 11/01/19 16:51 Urine Bilirubin Negative (NEGATIVE) 11/01/19 16:51 Urine Urobilinogen 0.2 mg/dL (0.2-1.0) 11/01/19 16:51 Ur Leukocyte Esterase Negative (Negative) 11/01/19 16:51 Urine RBC 0 /hpf 11/01/19 16:51 Urine WBC 0 /hpf 11/01/19 16:51 Ur Epithelial Cells 0 /hpf 11/01/19 16:51 Urine Bacteria 0 11/01/19 16:51 Urine HCG, Qual Negative (NEGATIVE) 11/01/19 16:51 Departure - Departure Clinical Impression: Viral syndrome Headache Qualifiers: Headache type: unspecified Headache chronicity pattern: acute headache Intractability: intractable Qualified Code(s): R51 - Headache Disposition: Discharge to Home or Self Care Departure Forms: ED Discharge - Pt. Copy, Patient Portal Self Enrollment Instructions: DI for Headache Home Medications: Ambulatory Orders tiZANidine [Zanaflex] 4 mg PO TID 06/03/15 Gabapentin [Neurontin] 600 mg PO TID #0 05/31/16 HYDROcodone 10MG/APAP 325MG [[place] 10/325] 1 tab PO QID 05/31/16 Albuterol Sulfate [Proair Hfa] 108 mcg IN PRN PRN 08/27/19 Budesonide-Formoterol Fumarate [Symbicort] 1 aer IN PRN PRN 08/27/19 Montelukast [Singulair] 10 mg PO QPM 08/27/19 Omeprazole Magnesium [Prilosec Otc] 40 mg PO QAM 08/27/19 Vilazodone HCl [Viibryd] 20 mg PO DAILY 08/27/19 busPIRone HCL [Buspar] 20 mg PO BID 08/27/19 Cynetkeamy-Jyixliotqgedc-Etjgr [Fioricet] 1 cap PO Q4HR #20 cap 10/27/19 Ondansetron HCl [Zofran] 4 mg PO Q6HRS #14 tab 10/27/19
[2019-11-01] MEDS ORDERED: MORPHINE SULFATE INJ 10 MG/ML VIAL IV ONE ×3 (16:57→21:31)
--- NOTE | 2019-11-01 17:25 | RAD ---
EXAM DESCRIPTION: Chest,1 View CLINICAL HISTORY: 49 years Female, chest pain COMPARISON: Previous chest x-ray October 17, 2019 TECHNIQUE: AP portable chest. FINDINGS: Heart size is normal with normal pulmonary vascularity. No consolidating infiltrate. No pulmonary mass or worrisome nodule. No pneumothorax or pleural effusion. Bones are unremarkable. IMPRESSION: No acute process is identified in the chest. Electronically signed by: Fletcher Reed MD 11/01/2019 5:23 PM CDT
--- NOTE | 2019-11-01 18:04 | CT ---
EXAM DESCRIPTION: Abdomen/Pelvis w/Contrast CLINICAL HISTORY: abd pain COMPARISON: None Available TECHNIQUE: Contiguous axial images of the abdomen and pelvis were obtained after the administration of intravenous contrast followed by reconstruction images.This exam was performed according to our departmental dose-optimization program, which includes automated exposure control, adjustment of the mA and/or kV according to patient size and/or use of iterative reconstruction technique. FINDINGS: Increased opacity within the dependent portion of the lungs and linear opacities at the right middle lung may represent atelectasis. Patient is status post cholecystectomy. Patient is status post lumbar surgery. Calcifications within the pelvis compatible with phleboliths. Patient is status post hysterectomy. The liver, spleen, pancreas and kidneys are within normal limits. There is no hydronephrosis or renal stones. Adrenal glands are within normal limits. Aorta is of normal caliber and tapering. There is no free fluid in the abdomen or pelvis. There is no bowel obstruction. There is no stranding of the mesenteric fat to suggest an inflammatory response. The appendix was not visualized. There is no pericecal inflammation. IMPRESSION: No acute intra-abdominal abnormality. Increased opacity within the dependent portion of the lungs and linear opacities at the right middle lung may represent atelectasis. Electronically signed by: Jan Atkins MD 11/01/2019 6:03 PM CDT
[2019-11-01] MEDS ORDERED: PROMETHAZINE HCL INJ 12.5 MG in SODIUM CHLORIDE 0.9% 50ML 50 ML IVPB ONE (19:01)
[2019-11-01] MEDS ORDERED: SODIUM CHLORIDE 0.9% (FLUSH) 10 ML SYG ONE (22:26)
[2019-11-01 22:46] VITALS: O2SAT 98
[2019-11-01 22:50] VITALS: BP 125/75; TEMP 97.9
== END 2019-11-01 22:48 | disposition short-term general hospital (02) ==
LOC: ER 15:57
DX: B34.9 Viral infection, unspecified (principal); R51 Headache; R10.9 Unspecified abdominal pain; J44.9 Chronic obstructive pulmonary disease, unspecified; I50.9 Heart failure, unspecified; I11.0 Hypertensive heart disease with heart failure; E11.9 Type 2 diabetes mellitus without complications; K21.9 Gastro-esophageal reflux disease without esophagitis; Z20.828 Contact with and (suspected) exposure to other viral communicable diseases; Z87.891 Personal history of nicotine dependence; Z79.899 Other long term (current) drug therapy
CPT/HCPCS: 36415; 36416; 71045; 74177; 80053; 81001; 81025; 82550; 83690; 84484; 85025; 87635; 93005; A4216; J2270; J2405; J2550; J7030

== ENCOUNTER → 2019-12-20 | Outpatient (CLI) | payer MEDICARE, OTHER ==
--- NOTE | 2019-12-21 20:05 | US ---
EXAM DESCRIPTION: Soft Tissue,Abdomen: ULTRASOUND. CLINICAL HISTORY: UMBILICAL HERNIA WITHOUT OBSTRUCTION OR GANGRENE COMPARISON: CT scan of the abdomen October 31 TECHNIQUE: Transabdominal scanning: gallardo-scale mode. Doppler mode. FINDINGS: No defect in the periumbilical region. The umbilicus appears hypoechoic. No peristalsis in the subcutaneous adipose tissue. No dominant solid mass, no fluid collection, no distinct cyst, no large calcifications. IMPRESSION: No umbilical or periumbilical hernia is detected. Electronically signed by: Sascha Interiano MD 12/21/2019 8:03 PM CDT
== END ==
LOC: US 13:36
PROVIDERS: ATTEND Nurse Practitioner Family
DX: K42.9 Umbilical hernia without obstruction or gangrene (principal)

== ENCOUNTER → 2020-01-24 | Outpatient (CLI) | payer MEDICARE, OTHER ==
--- NOTE | 2020-01-25 14:56 | MRI ---
EXAM DESCRIPTION: Cervical Spine: MRI. CLINICAL HISTORY: 49 years Female CERVICALGIA COMPARISON: MRI scan of the thoracic spine on the same visit. TECHNIQUE: Multiplanar, high-field MRI, multiple sequences, non-contrast Cervical spine. FINDINGS: C4-C5: Disc desiccation and posterior disc space loss. Left uncinate spur and borderline left neural foraminal stenosis. Mild left neural foraminal narrowing. Tiny disc bulge and minimal canal narrowing. Facet joints are unremarkable. C5-C6: Disc desiccation with disc space maintained. Posterior midline bulge but not abutting the cord. Contains a small hyperintense T2 segment consistent with annular fissure in the midline. Small bilateral uncinate spurs with bilateral mild neural foraminal narrowing. Facet joints unremarkable. C6-C7: Disc desiccation and disc space maintained. Mild canal narrowing. Bilateral neural foramina unremarkable. Facet joints are intact. Normal signal in the C2-C3 disc, C3-C4 disc, C7-T1 disc, and T1-2 disc. with no bulging. Disc spaces preserved. Canal and neural foramina are patent. Perineural cyst abutting the left C8 nerve in the C7-T1 left neural foramen. Facet joints are intact. Spinal alignment maintained. No cord compression or cord edema. Atlantoaxial joint mild arthrosis. Base of the cerebellar tonsils is at the level of the foramen magnum. Paravertebral soft tissues are negative.. Vertebral bodies are not compressed at any level. Normal marrow signal in the remaining vertebral bodies and the posterior elements. IMPRESSION: 1. Multiple levels of mild disc desiccation, disc bulging, and uncinate spurs. 2. Left uncinate spur at C4-C5 with borderline left neural foraminal stenosis. 3. Please refer to FINDINGS for discussion of results at other disc space levels. Electronically signed by: Sascha Interiano MD 01/25/2020 2:55 PM [employer]
--- NOTE | 2020-01-25 15:42 | MRI ---
EXAM DESCRIPTION: Thoracic Spine w/o Contrast: Magnetic Resonance Imaging. CLINICAL HISTORY: pain in thoracic spine neck pain and tingling in the right shoulder and arm. Bilateral upper thigh pain. COMPARISON: MRI scan of the cervical spine without contrast on the same visit. TECHNIQUE: Multiplanar, multiple standard sequences, non contrast MRI, thoracic spine. FINDINGS: T11-T12: Disc dislocation posterior midline and left paracentral 5 mm protrusion but not touching the cord. Mild to moderate canal narrowing. Facet joints are unremarkable. Bilateral foramina are patent. Conus terminates just below the disc space. T7-T8 disc desiccation. Minimal disc space loss. Anterior disc bulge and anterior disc space loss. Mild anterior endplate reactive changes. Posterior midline 5 mm disc protrusion impressing on the midline cord with moderate canal narrowing. Bilateral facet joints are intact. T9-T10 and T8-T9 disc desiccation and minimal disc space loss. Anterior bulging but no posterior bulging. Canal and foramina are patent. Schmorl's nodes inferior T9 endplate. Facet joints are unremarkable. Circumscribed hyperintense T1 and T2 hemangioma superior T3 endplate. Remaining discs with normal signal. Disc spaces are preserved. Canal and foramina are patent. Facet joints are unremarkable. Conus terminates at T12-L1.. Cord with normal signal, no compression. No scoliosis. Paravertebral soft tissues are unremarkable. Normal marrow signal in the remaining vertebral bodies and the posterior elements. Vertebral bodies are not compressed at any level. IMPRESSION: 1. Left paracentral protrusion of the T11-T12 disc impressing on the cord but no canal or foraminal stenosis. No cord compression. 2. Posterior midline 5 mm disc protrusion T7-T8 with moderate canal narrowing and no canal or foraminal stenosis. No cord compression. 3. Please refer to findings or discussion of results at other disc space levels. Electronically signed by: Sascha Interiano MD 01/25/2020 3:40 PM [facility]
== END ==
LOC: MRI 10:28
PROVIDERS: ATTEND Nurse Practitioner Adult Health
DX: M51.24 Other intervertebral disc displacement, thoracic region (principal); M51.44 Schmorl's nodes, thoracic region; M50.321 Other cervical disc degeneration at C4-C5 level; M50.322 Other cervical disc degeneration at C5-C6 level; M50.323 Other cervical disc degeneration at C6-C7 level; M25.78 Osteophyte, vertebrae

== ENCOUNTER 2020-02-01 15:36 | Emergency (ER) | payer MEDICARE, OTHER ==
--- NOTE | 2020-02-01 16:03 | ED.PDOC ---
History of Present Illness - General Chief Complaint: General Stated Complaint: headache, body aches, cough Time Seen by Provider: 02/01/20 16:00 Source: patient, RN notes reviewed, Vital Signs reviewed Exam Limitations: no limitations - History of Present Illness Initial Comments: This is a 49-year-old female with history of COPD, CHF presenting to the emergency department today for 24 hours of cough, sore throat, fever of 101, nausea, as well as headache. 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 She had prolonged contact over 2 days in a single room approximately 1 week ago. She has not taken anything for her symptoms. Allergies/Adverse Reactions: Allergies Metronidazole [From Flagyl] Allergy (Verified 10/27/19 17:05) Sulfa Drugs Allergy (Verified 10/27/19 17:05) Home Medications: Ambulatory Orders tiZANidine [Zanaflex] 4 mg PO TID 06/03/15 Gabapentin [Neurontin] 600 mg PO TID #0 05/31/16 HYDROcodone 10MG/APAP 325MG [[place] 10/325] 1 tab PO QID 05/31/16 Albuterol Sulfate [Proair Hfa] 108 mcg IN PRN PRN 08/27/19 Budesonide-Formoterol Fumarate [Symbicort] 1 aer IN PRN PRN 08/27/19 Montelukast [Singulair] 10 mg PO QPM 08/27/19 Omeprazole Magnesium [Prilosec Otc] 40 mg PO QAM 08/27/19 Vilazodone HCl [Viibryd] 20 mg PO DAILY 08/27/19 busPIRone HCL [Buspar] 20 mg PO BID 08/27/19 Ybsdyuniqp-Pbftrkwvofcdv-Lsoqd [Fioricet] 1 cap PO Q4HR #20 cap 10/27/19 Ondansetron HCl [Zofran] 4 mg PO Q6HRS #14 tab 10/27/19 Ibuprofen [Motrin] 400 mg PO Q6H PRN #20 tab 02/01/20 Ondansetron Odt [Zofran ODT] 8 mg PO Q6H PRN #15 tab 02/01/20 Prednisone 50 mg PO DAILY #5 tab 02/01/20 guaiFENesin W/CODEINE LIQ [Robitussin AC] 10 ml PO Q6H PRN #150 ml 02/01/20 Review of Systems - Review of Systems Constitutional: States: chills, fever, malaise EENTM: States: nose congestion, throat pain. Denies: eye pain, mouth pain Respiratory: States: cough, short of breath. Denies: wheezing Cardiology: Denies: chest pain, edema, palpitations Gastrointestinal/Abdominal: States: diarrhea, nausea, vomiting. Denies: abdominal pain, constipation Musculoskeletal: States: muscle pain. Denies: joint pain, joint swelling, muscle stiffness Skin: Denies: lesions, rash Neurological: Denies: headache, paresthesia, weakness Endocrine: States: no symptoms reported Hematologic/Lymphatic: States: no symptoms reported Past Medical History (General) - Patient Medical History Hx Seizures: No Hx Stroke: No Hx Dementia: No Hx Asthma: No Hx of COPD: Yes Hx Cardiac Disorders: No Hx Congestive Heart Failure: Yes Hx Pacemaker: No Hx Hypertension: Yes Hx Thyroid Disease: No Hx Diabetes: Yes Hx Gastroesophageal Reflux: Yes Hx Renal Disease: No Hx Cancer: No Hx of HIV: No Hx Hepatitis C: No Hx MRSA: No MRSA Source:: Wound Surgical History: Hysterectomy, other - Vaccination History Hx Tetanus, Diphtheria Vaccination: Yes Hx Influenza Vaccination: Yes Hx Pneumococcal Vaccination: Yes - Social History Hx Tobacco Use: Yes Hx Chewing Tobacco Use: No Hx Alcohol Use: No Hx Substance Use: No Hx Substance Use Treatment: No Hx Depression: No Hx Physical Abuse: No Hx Emotional Abuse: No Hx Suspected Abuse: No - Female History Patient : No - Hyst Family Medical History - Family History Mother Family History: Unknown Living Status: Hx Cardiac Disease: Yes Hx Family Diabetes: Yes Physical Exam - Physical Exam General Appearance: Alert, Comfortable Ears, Nose, Throat: hearing grossly normal, normal ENT inspection, other - Oropharyngeal exam deferred due to concern for COVID-19 infection Respiratory: chest non-tender, lungs clear, normal breath sounds, no respiratory distress, no accessory muscle use Cardiovascular/Chest: normal peripheral pulses, regular rate, rhythm, no edema, no gallop, no JVD Peripheral Pulses: radial,right: 2+, radial,left: 2+, dorsalis pedis,right: 2+, dorsalis pedis,left: 2+, posterior tibialis,right: 2+, posterior tibialis,left: 2+ Gastrointestinal/Abdominal: non tender, soft Back Exam: normal inspection, no CVA tenderness Extremity: non-tender, normal inspection, no pedal edema Neurologic: no motor/sensory deficits, alert, normal mood/affect, oriented x 3 Skin Exam: normal color, warm/dry Progress - Progress Progress: 02/01/20 16:13 Rechecked. Discussed chest x-ray findings. Discussed plan for symptomatic treatment. O2 sats remained in the upper 90s on room air. No tachycardia, no respiratory distress. Strongly suspect COVID-19 infection given recent prolonged contact with COVID-19 positive patient. Recommended home quarantine for 2 weeks. Will treat symptomatically. Strict warnings given to return the emergency room for worsening shortness of breath, intractable vomiting, changes in mental status, or any other concerns. DDx: Pneumonia, pneumothorax, COVID-19 MDM: Known prolonged exposure to COVID-19, strongly suspect COVID-19 infection. Vital signs acceptable, sats 95 to 98% on room air. There is no respiratory distress. Chest x-ray clear. Will treat symptomatically. Notification for extensive work-up or admission at this time. Recommend follow-up with PCP in 3 to 5 days for recheck. Strict warnings given to return the emergency room for shortness of breath, intractable vomiting, changes in mental status, or any other concerns. Discussed strict handwashing, quarantine at home, importance of mask wearing, etc. Bobby Gonsalez DO [facility] #[id number] - Results/Orders Results/Orders: Chest x-ray reviewed personally by me at 4:13 PM. No acute process. No infiltrates, no pneumothorax. No evidence of volume overload/pulmonary edema COVID-19 swab pending at the time of discharge Departure - Departure Clinical Impression: Viral upper respiratory tract infection with cough, Suspected 2019 novel coronavirus infection Time of Disposition: 16:22 Disposition: Discharge to Home or Self Care Condition: Good Departure Forms: ED Discharge - Pt. Copy, ED Discharge - Work Release, Patient Portal Self Enrollment Diet: resume usual diet Activity: increase activity as tolerated Referrals: MAMI ALMEIDA IV, [employer] [Primary Care Provider] - 1-5 Days Prescriptions: Ibuprofen [Motrin] 400 mg PO Q6H PRN #20 tab PRN Reason: Pain Prednisone 50 mg PO DAILY #5 tab guaiFENesin W/CODEINE LIQ [Robitussin AC] 10 ml PO Q6H PRN #150 ml PRN Reason: Cough Ondansetron Odt [Zofran ODT] 8 mg PO Q6H PRN #15 tab PRN Reason: Nausea Home Medications: Ambulatory Orders tiZANidine [Zanaflex] 4 mg PO TID 06/03/15 Gabapentin [Neurontin] 600 mg PO TID #0 05/31/16 HYDROcodone 10MG/APAP 325MG [[place] 10/325] 1 tab PO QID 05/31/16 Albuterol Sulfate [Proair Hfa] 108 mcg IN PRN PRN 08/27/19 Budesonide-Formoterol Fumarate [Symbicort] 1 aer IN PRN PRN 08/27/19 Montelukast [Singulair] 10 mg PO QPM 08/27/19 Omeprazole Magnesium [Prilosec Otc] 40 mg PO QAM 08/27/19 Vilazodone HCl [Viibryd] 20 mg PO DAILY 08/27/19 busPIRone HCL [Buspar] 20 mg PO BID 08/27/19 Bvexhgstmd-Airmmhtugzhfw-Hsxme [Fioricet] 1 cap PO Q4HR #20 cap 10/27/19 Ondansetron HCl [Zofran] 4 mg PO Q6HRS #14 tab 10/27/19 Ibuprofen [Motrin] 400 mg PO Q6H PRN #20 tab 02/01/20 Ondansetron Odt [Zofran ODT] 8 mg PO Q6H PRN #15 tab 02/01/20 Prednisone 50 mg PO DAILY #5 tab 02/01/20 guaiFENesin W/CODEINE LIQ [Robitussin AC] 10 ml PO Q6H PRN #150 ml 02/01/20 Additional Instructions: Drink plenty of fluids. You will need to quarantine at home for the next 2 weeks or until cleared by your employers return to work policy. Wash hands frequently. Do not go out in public.
[2020-02-01 16:38] VITALS: BP 108/68; TEMP 97.9; O2SAT 99
--- NOTE | 2020-02-01 16:39 | RAD ---
EXAM: Chest,1 View CLINICAL INDICATION: 49-year-old female with cough, fever and Covid contact. TECHNIQUE: Single view, AP portable chest was obtained. COMPARISON: 11/01/2019. FINDINGS: Unremarkable cardiac and mediastinal silhouette. Heart size is normal. Lungs are clear without focal opacity, pneumothorax or pleural effusions. The visualized bones are within normal limits. IMPRESSION: No acute cardiopulmonary abnormalities. Electronically signed by: Shanda Burnham MD 02/01/2020 4:38 PM [facility]
== END 2020-02-01 16:38 | disposition home or self-care (01) ==
LOC: ER 15:36
DX: J06.9 Acute upper respiratory infection, unspecified (principal); J44.9 Chronic obstructive pulmonary disease, unspecified; I50.9 Heart failure, unspecified; I11.0 Hypertensive heart disease with heart failure; E11.9 Type 2 diabetes mellitus without complications; K21.9 Gastro-esophageal reflux disease without esophagitis; Z20.828 Contact with and (suspected) exposure to other viral communicable diseases; Z87.891 Personal history of nicotine dependence; Z79.899 Other long term (current) drug therapy; Z88.8 Allergy status to other drugs, medicaments and biological substances; Z88.2 Allergy status to sulfonamides

== ENCOUNTER 2020-02-21 09:03 | Emergency (ER) | payer MEDICARE, OTHER ==
[2020-02-21] MEDS ORDERED: ASPIRIN (CHEWABLE) 81 MG TAB PO ONE (09:32)
[2020-02-21] MEDS ORDERED: SODIUM CHLORIDE 0.9% (FLUSH) 10 ML SYG IV PRN (09:32)
[2020-02-21] MEDS ORDERED: PROCHLORPERAZINE INJ 10 MG/2 ML VIAL IV ONE (09:34)
[2020-02-21] MEDS ORDERED: MAGNESIUM SULFATE INJ 1 GM in SODIUM CHLORIDE 0.9% 100ML 100 ML IVPB ONE (09:34)
[2020-02-21] MEDS ORDERED: NITROGLYCERIN 2% 1 GM UD TOP ONE (09:35)
--- NOTE | 2020-02-21 09:58 | ED.PDOC ---
History of Present Illness - General Chief Complaint: Headache Stated Complaint: SOLIS,Chest pressure,hurts to breathe Time Seen by Provider: 02/21/20 09:07 Source: patient, RN notes reviewed, Vital Signs reviewed Exam Limitations: no limitations - History of Present Illness Initial Comments: Patient presents with complaints of chest pain, shortness of breath and headache. The chest pain is pressure-like in nature. It is worse with laying down flat. The shortness of breath and chest pain are improved by sitting up. There is no radiation of the pain. The intensity is mild pain. Timing/Duration: other - 12 hours Severity: mild Improving Factors: other - sitting up Worsening Factors: other - laying down Associated Symptoms: chest pain, headaches, shortness of breath Allergies/Adverse Reactions: Allergies Metronidazole [From Flagyl] Allergy (Verified 10/27/19 17:05) Sulfa Drugs Allergy (Verified 10/27/19 17:05) Home Medications: Ambulatory Orders tiZANidine [Zanaflex] 4 mg PO TID 06/03/15 Gabapentin [Neurontin] 600 mg PO TID #0 05/31/16 HYDROcodone 10MG/APAP 325MG [[place] 10/325] 1 tab PO QID 05/31/16 Albuterol Sulfate [Proair Hfa] 108 mcg IN PRN PRN 08/27/19 Budesonide-Formoterol Fumarate [Symbicort] 1 aer IN PRN PRN 08/27/19 Montelukast [Singulair] 10 mg PO QPM 08/27/19 Omeprazole Magnesium [Prilosec Otc] 40 mg PO QAM 08/27/19 Vilazodone HCl [Viibryd] 20 mg PO DAILY 08/27/19 busPIRone HCL [Buspar] 20 mg PO BID 08/27/19 Gftjivcgxy-Gggaijbxtrhei-Pjyhb [Fioricet] 1 cap PO Q4HR #20 cap 10/27/19 Ondansetron HCl [Zofran] 4 mg PO Q6HRS #14 tab 10/27/19 Ibuprofen [Motrin] 400 mg PO Q6H PRN #20 tab 02/01/20 Ondansetron Odt [Zofran ODT] 8 mg PO Q6H PRN #15 tab 02/01/20 Prednisone 50 mg PO DAILY #5 tab 02/01/20 guaiFENesin W/CODEINE LIQ [Robitussin AC] 10 ml PO Q6H PRN #150 ml 02/01/20 LORazepam [Ativan] 1 mg PO BID #6 tab 02/21/20 Review of Systems - Review of Systems Constitutional: States: no symptoms reported, see HPI. Denies: chills, fever, malaise, weakness EENTM: States: no symptoms reported. Denies: eye pain, blurred vision, double vision Respiratory: States: see HPI, short of breath. Denies: cough, stridor, wheezing Cardiology: States: see HPI, chest pain. Denies: palpitations, syncope Gastrointestinal/Abdominal: States: no symptoms reported. Denies: abdominal pain, diarrhea, nausea, vomiting Genitourinary: States: no symptoms reported. Denies: dysuria, frequency Musculoskeletal: States: no symptoms reported. Denies: back pain, joint pain, joint swelling, neck pain Skin: States: no symptoms reported. Denies: change in color, rash Neurological: States: see HPI, headache. Denies: tingling, tremors, weakness Endocrine: States: no symptoms reported. Denies: increased hunger, increased thirst Hematologic/Lymphatic: States: no symptoms reported. Denies: blood clots, easy bleeding All other Systems: Reviewed and Negative Past Medical History (General) - Patient Medical History Hx Seizures: No Hx Stroke: No Hx Dementia: No Hx Asthma: No Hx of COPD: Yes Hx Cardiac Disorders: No Hx Congestive Heart Failure: Yes Hx Pacemaker: No Hx Hypertension: Yes Hx Thyroid Disease: No Hx Diabetes: Yes Hx Gastroesophageal Reflux: Yes Hx Renal Disease: No Hx Cancer: No Hx of HIV: No Hx Hepatitis C: No Hx MRSA: No MRSA Source:: Wound Surgical History: Hysterectomy - Vaccination History Hx Tetanus, Diphtheria Vaccination: Yes Hx Influenza Vaccination: Yes Hx Pneumococcal Vaccination: No - Social History Hx Tobacco Use: Yes Hx Chewing Tobacco Use: No Hx Alcohol Use: No Hx Substance Use: No Hx Substance Use Treatment: No Hx Depression: No Hx Physical Abuse: No Hx Emotional Abuse: No Hx Suspected Abuse: No - Female History Patient : No - Hyst Family Medical History - Family History Mother Family History: Unknown Living Status: Hx Cardiac Disease: Yes Hx Family Diabetes: Yes Physical Exam - Physical Exam General Appearance: Alert, Anxious, Well Developed, Well Groomed, Well Hydrated, Well Nourished Eye Exam: bilateral normal Ears, Nose, Throat: hearing grossly normal, normal ENT inspection, normal pharynx Neck: non-tender, full range of motion, supple, normal inspection Respiratory: chest non-tender, lungs clear, normal breath sounds, no respiratory distress, no accessory muscle use Cardiovascular/Chest: normal peripheral pulses, regular rate, rhythm, no edema, no gallop, no JVD, no murmur Peripheral Pulses: radial,right: 2+, radial,left: 2+ Gastrointestinal/Abdominal: normal bowel sounds, non tender, soft, no organomegaly Back Exam: normal inspection, no CVA tenderness, no vertebral tenderness Extremity: normal range of motion, non-tender, normal inspection, no pedal edema Neurologic: intelligence clerk II-XII nml as tested, no motor/sensory deficits, alert, normal mood/affect, oriented x 3 Skin Exam: normal color, warm/dry Lymphatic: no adenopathy Progress - Progress Progress: Differential diagnosis: ACS, Covid, CHF, PE among others. 02/21/20 13:47 Patient's chest x-ray is normal. Her EKG does not show any acute ischemia. D- dimer is less than 131 which indicates that it is highly unlikely she has a PE. Remainder of labs are unremarkable. BMP is pending at this time. Will reassess once the BMP is back. Patient is markedly improved from pain after her IV pain medicine. 02/21/20 15:33 BMP was not resulted by laboratory. Will not redraw labs at this time. Chest x-ray does not show any sign of volume overload. Patient is very anxious and now admits to the fact that this was one of her anxiety attacks. Patient has a significant narcotic prescription use by her PCP due to chronic pain. I will discharge patient home with 6 Ativan tablets to hold her over the week until she can see her PCP on Monday and consider starting on Zoloft or Prozac for this anxiety. I discussed this with the patient she voices understanding and agreement. Phillip Salas M.D. #[id number] - Results/Orders Results/Orders: EKG performed on 21 February 2020 at 0918 hrs.: Normal sinus rhythm at 82 bpm, normal axis deviation, nonspecific ST flattening seen anteriorly, abnormal EKG. No comparison EKG available at this time. EXAM: Chest,1 View INDICATION: 49 years Female, chest pain COMPARISON: Single view of the chest 02/01/2020 FINDINGS: Single view of the chest was performed. Heart size is within normal limits. No pulmonary infiltrate or pleural effusion. No pneumothorax. The osseous structures are intact. Unremarkable appearance of the visualized upper abdomen. IMPRESSION: No evidence for acute cardiopulmonary process. Electronically signed by: Melonie Irvin MD 02/21/2020 10:22 02/21/20 09:32 Sodium Chloride 0.9% (Flush) [Saline Flush Syringe] 3 ml IV PRN PRN 02/21/20 09:33 Telemetry ONCE Pulse Oximetry Assessment DAILY 02/21/20 09:45 EKG STAT 02/22/20 09:00 Pulse Ox Daily Laboratory Results - last 24 hr 02/21/20 02/21/20 02/21/20 10:15 10:15 13:00 WBC 5.3 RBC 3.84 L Hgb 13.6 Hct 39.2 MCV 102.0 H MCH 35.3 H MCHC 34.6 RDW 13.2 Plt Count 184 MPV 8.7 Absolute Neuts (auto) 3.50 Absolute Lymphs (auto) 1.50 Absolute Monos (auto) 0.30 Absolute Eos (auto) 0.00 Absolute Basos (auto) 0.10 Neutrophils % 65.8 Lymphocytes % 27.5 Monocytes % 4.8 Eosinophils % 0.8 L Basophils % 1.1 PT 10.8 INR 1.09 PTT (SP) 26.8 D-Dimer, Quantitative < 131.0 L Sodium 137 Potassium 4.2 Chloride 102 Carbon Dioxide 24 Anion Gap 15.2 BUN 13 Creatinine 0.76 BUN/Creatinine Ratio 17.1 Random Glucose 127 H Serum Osmolality 275.5 Calcium 8.5 Magnesium 2.1 Total Bilirubin 0.6 Direct Bilirubin 0.1 Indirect Bilirubin 0.5 AST 11 ALT 9 L Alkaline Phosphatase 49 Creatine Kinase 50 CK-MB (CK-2) 1.3 CK-MB (CK-2) % Not Reportable Troponin I < 0.02 Serum Total Protein 7.3 Albumin 4.3 02/21/20 13:00 WBC RBC Hgb Hct MCV MCH MCHC RDW Plt Count MPV Absolute Neuts (auto) Absolute Lymphs (auto) Absolute Monos (auto) Absolute Eos (auto) Absolute Basos (auto) Neutrophils % Lymphocytes % Monocytes % Eosinophils % Basophils % PT INR PTT (SP) D-Dimer, Quantitative Sodium Potassium Chloride Carbon Dioxide Anion Gap BUN Creatinine BUN/Creatinine Ratio Random Glucose Serum Osmolality Calcium Magnesium Total Bilirubin Direct Bilirubin Indirect Bilirubin AST ALT Alkaline Phosphatase Creatine Kinase CK-MB (CK-2) CK-MB (CK-2) % Troponin I < 0.02 Serum Total Protein Albumin Vital Signs 02/21/20 02/21/20 02/21/20 09:14 09:20 10:38 Temperature 98.2 F Pulse Rate [ 115 H Left Brachial] Respiratory 20 20 Rate Blood Pressure 133/90 [Left Arm] O2 Sat by Pulse 95 98 Oximetry 02/21/20 02/21/20 02/21/20 10:41 11:00 12:00 Temperature Pulse Rate [ 89 75 68 Left Brachial] Respiratory 20 16 16 Rate Blood Pressure 107/66 103/77 108/73 [Left Arm] O2 Sat by Pulse 96 95 100 Oximetry 02/21/20 13:00 Temperature Pulse Rate [ 81 Left Brachial] Respiratory 16 Rate Blood Pressure 115/72 [Left Arm] O2 Sat by Pulse 99 Oximetry Departure - Departure Clinical Impression: Atypical chest pain, Anxiety Time of Disposition: 15:37 Disposition: Discharge to Home or Self Care Condition: Good Departure Forms: ED Discharge - Pt. Copy, Patient Portal Self Enrollment Instructions: DI for Headache, Chest Pain That Is Not Caused by the Heart (DC), Anxiety, Adult (DC) Diet: resume usual diet Activity: increase activity as tolerated Referrals: MAMI ALMEIDA IV, [employer] [Primary Care Provider] - 1-5 Days Prescriptions: LORazepam [Ativan] 1 mg PO BID #6 tab Home Medications: Ambulatory Orders tiZANidine [Zanaflex] 4 mg PO TID 06/03/15 Gabapentin [Neurontin] 600 mg PO TID #0 05/31/16 HYDROcodone 10MG/APAP 325MG [[place] 10/325] 1 tab PO QID 05/31/16 Albuterol Sulfate [Proair Hfa] 108 mcg IN PRN PRN 08/27/19 Budesonide-Formoterol Fumarate [Symbicort] 1 aer IN PRN PRN 08/27/19 Montelukast [Singulair] 10 mg PO QPM 08/27/19 Omeprazole Magnesium [Prilosec Otc] 40 mg PO QAM 08/27/19 Vilazodone HCl [Viibryd] 20 mg PO DAILY 08/27/19 busPIRone HCL [Buspar] 20 mg PO BID 08/27/19 Hhtgdwsrsj-Xfdsyqvcmsrnn-Mlzal [Fioricet] 1 cap PO Q4HR #20 cap 10/27/19 Ondansetron HCl [Zofran] 4 mg PO Q6HRS #14 tab 10/27/19 Ibuprofen [Motrin] 400 mg PO Q6H PRN #20 tab 02/01/20 Ondansetron Odt [Zofran ODT] 8 mg PO Q6H PRN #15 tab 02/01/20 Prednisone 50 mg PO DAILY #5 tab 02/01/20 guaiFENesin W/CODEINE LIQ [Robitussin AC] 10 ml PO Q6H PRN #150 ml 02/01/20 LORazepam [Ativan] 1 mg PO BID #6 tab 02/21/20
--- NOTE | 2020-02-21 10:24 | RAD ---
EXAM: Chest,1 View INDICATION: 49 years Female, chest pain COMPARISON: Single view of the chest 02/01/2020 FINDINGS: Single view of the chest was performed. Heart size is within normal limits. No pulmonary infiltrate or pleural effusion. No pneumothorax. The osseous structures are intact. Unremarkable appearance of the visualized upper abdomen. IMPRESSION: No evidence for acute cardiopulmonary process. Electronically signed by: Melonie Irvin MD 02/21/2020 10:22 AM [facility]
[2020-02-21] MEDS ORDERED: MORPHINE SULFATE INJ 10 MG/ML VIAL IV ONE (11:01)
[2020-02-21 13:33] VITALS: O2SAT 99
[2020-02-21 15:48] VITALS: BP 119/78; TEMP 97.6
== END 2020-02-21 15:47 | disposition home or self-care (01) ==
LOC: ER 09:03
DX: R07.89 Other chest pain (principal); F41.9 Anxiety disorder, unspecified; R51.9 Headache, unspecified; J44.9 Chronic obstructive pulmonary disease, unspecified; I50.9 Heart failure, unspecified; I11.0 Hypertensive heart disease with heart failure; E11.9 Type 2 diabetes mellitus without complications; K21.9 Gastro-esophageal reflux disease without esophagitis; Z20.828 Contact with and (suspected) exposure to other viral communicable diseases; Z79.899 Other long term (current) drug therapy; Z87.891 Personal history of nicotine dependence
CPT/HCPCS: 36415; 71045; 80048; 80076; 82550; 82553; 84484; 85025; 85379; 85610; 85730; 87635; 93005; 94760; J0780; J2270; J3475; J7050

== ENCOUNTER 2020-02-29 17:00 | Emergency (ER) | payer MEDICARE, OTHER ==
[2020-02-29] MEDS ORDERED: ONDANSETRON INJ 4 MG/2 ML VIAL IV ONE (17:45)
[2020-02-29] MEDS ORDERED: MORPHINE SULFATE INJ 10 MG/ML VIAL IV ONE (17:45)
[2020-02-29] MEDS ORDERED: SODIUM CHLORIDE 0.9% 1000ML 1,000 ML IVS ONE (17:46)
--- NOTE | 2020-02-29 17:48 | ED.PDOC ---
History of Present Illness - General Chief Complaint: Respiratory Problem Stated Complaint: Cough, SOLIS, body aches, fever, SOB Time Seen by Provider: 02/29/20 17:42 Source: patient Exam Limitations: no limitations - History of Present Illness Comments: Patient presents for cough, shortness of breath and fevers. States that she has been having headache, runny nose, body aches with cough and exertional dyspnea for the past 5 days. Fever today to 101. She was seen in the ER last week for atypical chest pain, saw her PCP yesterday and was diagnosed with "pneumonia and flu" although she states that she did not receive any testing. She states that she got an antibiotic shot and a steroid shot and at home has been taking hydrocodone, tizanidine, buspar, ibuprofen, etc. Allergies/Adverse Reactions: Allergies Metronidazole [From Flagyl] Allergy (Verified 02/29/20 17:47) Sulfa Drugs Allergy (Verified 02/29/20 17:47) Home Medications: Ambulatory Orders tiZANidine [Zanaflex] 4 mg PO TID 06/03/15 Gabapentin [Neurontin] 600 mg PO TID #0 05/31/16 HYDROcodone 10MG/APAP 325MG [[place] 10/325] 1 tab PO QID 05/31/16 Albuterol Sulfate [Proair Hfa] 108 mcg IN PRN PRN 08/27/19 Budesonide-Formoterol Fumarate [Symbicort] 1 aer IN PRN PRN 08/27/19 Montelukast [Singulair] 10 mg PO QPM 08/27/19 Omeprazole Magnesium [Prilosec Otc] 40 mg PO QAM 08/27/19 Vilazodone HCl [Viibryd] 20 mg PO DAILY 08/27/19 busPIRone HCL [Buspar] 20 mg PO BID 08/27/19 Ryadilpqhr-Exzfwkuolaaro-Groio [Fioricet] 1 cap PO Q4HR #20 cap 10/27/19 Ondansetron HCl [Zofran] 4 mg PO Q6HRS #14 tab 10/27/19 Ibuprofen [Motrin] 400 mg PO Q6H PRN #20 tab 02/01/20 Ondansetron Odt [Zofran ODT] 8 mg PO Q6H PRN #15 tab 11/21/20 Prednisone 50 mg PO DAILY #5 tab 02/01/20 guaiFENesin W/CODEINE LIQ [Robitussin AC] 10 ml PO Q6H PRN #150 ml 02/01/20 LORazepam [Ativan] 1 mg PO BID #6 tab 02/21/20 Review of Systems - Review of Systems Constitutional: States: chills, fever EENTM: States: nose congestion Respiratory: States: cough, short of breath, wheezing Cardiology: Denies: chest pain, palpitations Gastrointestinal/Abdominal: Denies: abdominal pain, constipation, diarrhea, nausea, vomiting Genitourinary: States: no symptoms reported Musculoskeletal: States: muscle pain, muscle stiffness Skin: States: no symptoms reported Neurological: States: no symptoms reported Endocrine: States: no symptoms reported Hematologic/Lymphatic: States: no symptoms reported Past Medical History (General) - Patient Medical History Hx Seizures: No Hx Stroke: No Hx Dementia: No Hx Asthma: No Hx of COPD: Yes Hx Cardiac Disorders: No Hx Congestive Heart Failure: Yes Hx Pacemaker: No Hx Hypertension: Yes Hx Thyroid Disease: No Hx Diabetes: Yes Hx Gastroesophageal Reflux: Yes Hx Renal Disease: No Hx Cancer: No Hx of HIV: No Hx Hepatitis C: No Hx MRSA: No MRSA Source:: Wound - Vaccination History Hx Tetanus, Diphtheria Vaccination: Yes Hx Influenza Vaccination: Yes Hx Pneumococcal Vaccination: No - Social History Hx Tobacco Use: Yes Hx Chewing Tobacco Use: No Hx Alcohol Use: No Hx Substance Use: No Hx Substance Use Treatment: No Hx Depression: No Hx Physical Abuse: No Hx Emotional Abuse: No Hx Suspected Abuse: No - Female History Patient : No - Hyst Family Medical History - Family History Mother Family History: Unknown Living Status: Hx Cardiac Disease: Yes Hx Family Diabetes: Yes Physical Exam - Physical Exam General Appearance: Alert, Comfortable, No apparent distress ENT Exam: normal ENT inspection, hearing grossly normal, TMs normal, pharynx normal Neck: non-tender, full range of motion, supple Respiratory: lungs clear, normal breath sounds, no respiratory distress, no accessory muscle use Cardiovascular/Chest: regular rate, rhythm, no edema Gastrointestinal/Abdominal: non tender, soft Extremity: normal inspection, no pedal edema, no calf tenderness Neurologic: no motor/sensory deficits, alert, normal mood/affect, oriented x 3 Skin Exam: normal color Lymphatic: no adenopathy Progress - Progress Progress: 02/29/20 20:08 Patient reassessed, negative viral panel, no pneumonia. Will treat for URI/COPD exacerbation and she will continue outpatient follow up with her PCP. - Results/Orders Results/Orders: Laboratory Results - last 24 hr 02/29/20 02/29/20 18:00 18:00 WBC 9.0 RBC 3.47 L Hgb 12.5 Hct 34.9 L MCV 100.5 H MCH 36.1 H MCHC 35.9 RDW 13.3 Plt Count 193 MPV 8.6 Absolute Neuts (auto) 7.00 H Absolute Lymphs (auto) 1.50 Absolute Monos (auto) 0.50 Absolute Eos (auto) 0.00 Absolute Basos (auto) 0.00 Neutrophils % 77.3 Lymphocytes % 16.7 L Monocytes % 5.4 Eosinophils % 0.2 L Basophils % 0.4 Sodium 141 Potassium 3.9 Chloride 105 Carbon Dioxide 25 Anion Gap 14.9 BUN 10 Creatinine 0.69 BUN/Creatinine Ratio 14.5 Random Glucose 135 H Serum Osmolality 282.3 Calcium 8.7 MDM: Patient presents with cough/fever and shortness of breath. Workup as above, there is no evidence for acute pneumonia or other significant bacterial infection. Nasal PCR negative for respiratory viruses. No evidence for acute coronary syndrome. Will continue outpatient symptomatic management and she will follow up with her PCP. Home care instructions and return indications reviewed. Departure - Departure Clinical Impression: COPD with exacerbation Upper respiratory tract infection Qualifiers: URI type: unspecified viral URI Qualified Code(s): J06.9 - Acute upper respiratory infection, unspecified Time of Disposition: 20:09 Disposition: Discharge to Home or Self Care Condition: Good Departure Forms: ED Discharge - Pt. Copy, Patient Portal Self Enrollment Instructions: Chronic Obstructive Pulmonary Disease (COPD) (DC), Viral Upper Respiratory Infection, Adult (DC) Diet: resume usual diet Activity: increase activity as tolerated Referrals: MAMI ALMEIDA IV, BODY MASKER [Primary Care Provider] - 1-2 Weeks Home Medications: Ambulatory Orders tiZANidine [Zanaflex] 4 mg PO TID 06/03/15 Gabapentin [Neurontin] 600 mg PO TID #0 05/31/16 HYDROcodone 10MG/APAP 325MG [[place] 10/325] 1 tab PO QID 05/31/16 Albuterol Sulfate [Proair Hfa] 108 mcg IN PRN PRN 08/27/19 Budesonide-Formoterol Fumarate [Symbicort] 1 aer IN PRN PRN 08/27/19 Montelukast [Singulair] 10 mg PO QPM 08/27/19 Omeprazole Magnesium [Prilosec Otc] 40 mg PO QAM 08/27/19 Vilazodone HCl [Viibryd] 20 mg PO DAILY 08/27/19 busPIRone HCL [Buspar] 20 mg PO BID 08/27/19 Bmcldczwya-Mqdngwytfqyev-Wqisy [Fioricet] 1 cap PO Q4HR #20 cap 10/27/19 Ondansetron HCl [Zofran] 4 mg PO Q6HRS #14 tab 10/27/19 Ibuprofen [Motrin] 400 mg PO Q6H PRN #20 tab 02/01/20 Ondansetron Odt [Zofran ODT] 8 mg PO Q6H PRN #15 tab 02/01/20 Prednisone 50 mg PO DAILY #5 tab 02/01/20 guaiFENesin W/CODEINE LIQ [Robitussin AC] 10 ml PO Q6H PRN #150 ml 02/01/20 LORazepam [Ativan] 1 mg PO BID #6 tab 02/21/20
--- NOTE | 2020-02-29 18:41 | RAD ---
EXAM: Chest,1 View CLINICAL INDICATION: 49-year-old male with cough and shortness of breath with fever. TECHNIQUE: Single view, AP portable chest was obtained. COMPARISON: 02/21/2020. FINDINGS: Unremarkable cardiac and mediastinal silhouette. Heart size is normal. Lungs are clear without focal opacity, pneumothorax or pleural effusions. The visualized bones are within normal limits. IMPRESSION: No acute cardiopulmonary abnormalities. Electronically signed by: Shanda Burnham MD 02/29/2020 6:40 PM [facility]
[2020-02-29 20:20] VITALS: O2SAT 100
[2020-02-29 20:33] VITALS: BP 117/72; TEMP 98
== END 2020-02-29 20:35 | disposition home or self-care (01) ==
LOC: ER 17:00
DX: J44.1 Chronic obstructive pulmonary disease with (acute) exacerbation (principal); J06.9 Acute upper respiratory infection, unspecified; I50.9 Heart failure, unspecified; I11.0 Hypertensive heart disease with heart failure; E11.9 Type 2 diabetes mellitus without complications; Z20.828 Contact with and (suspected) exposure to other viral communicable diseases; Z87.891 Personal history of nicotine dependence; Z79.899 Other long term (current) drug therapy; Z88.8 Allergy status to other drugs, medicaments and biological substances; Z88.2 Allergy status to sulfonamides; Z87.01 Personal history of pneumonia (recurrent)
CPT/HCPCS: 36415; 71045; 80048; 85025; 87486; 87581; 87633; 87635; J2270; J2405; J7030

== ENCOUNTER 2020-03-07 12:56 | Emergency (ER) | payer MEDICARE, MEDICAID ==
[2020-03-07] MEDS ORDERED: NITROGLYCERIN 0.4 MG 25 EA TAB SL ONE (13:28)
[2020-03-07] MEDS ORDERED: SODIUM CHLORIDE 0.9% (FLUSH) 10 ML SYG IV PRN (13:28)
[2020-03-07] MEDS ORDERED: ASPIRIN TABLET 325 MG TAB PO ONE (13:28)
--- NOTE | 2020-03-07 13:59 | RAD ---
EXAM: Chest,1 View CLINICAL INDICATION: Chest pain COMPARISON: 02/29/2020 FINDINGS: A single view of the chest was obtained. The heart size is normal. The pulmonary vascularity is unremarkable. The lungs are clear. There is no consolidation, infiltrate, pleural effusion, or pneumothorax. IMPRESSION: No evidence of active pulmonary disease. Electronically signed by: Pk Stock MD 03/07/2020 1:57 PM RECOVERY ANALYST
[2020-03-07] MEDS ORDERED: ONDANSETRON INJ 4 MG/2 ML VIAL IV ONE (14:05)
[2020-03-07] MEDS ORDERED: ACETAMINOPHEN 500 MG TAB PO ONE (14:05)
--- NOTE | 2020-03-07 15:13 | ED.PDOC ---
History of Present Illness - General Chief Complaint: General Stated Complaint: Cough, body aches, N/V/D, chest tightness Time Seen by Provider: 03/07/20 13:27 - History of Present Illness Initial Comments: was seen in ED Similar complaints last week. Patient states that the chest pain just started 2 days ago.She was positive for the flu at that time. Timing/Duration: unsure Severity: moderate Improving Factors: nothing Worsening Factors: nothing Associated Symptoms: chest pain, cough, headaches Allergies/Adverse Reactions: Allergies Metronidazole [From Flagyl] Allergy (Verified 03/07/20 13:55) Sulfa Drugs Allergy (Verified 03/07/20 13:55) Home Medications: Ambulatory Orders tiZANidine [Zanaflex] 4 mg PO TID 06/03/15 Gabapentin [Neurontin] 600 mg PO TID #0 05/31/16 HYDROcodone 10MG/APAP 325MG [[place] 10/325] 1 tab PO QID 05/31/16 Albuterol Sulfate [Proair Hfa] 108 mcg IN PRN PRN 08/27/19 Budesonide-Formoterol Fumarate [Symbicort] 1 aer IN PRN PRN 08/27/19 Montelukast [Singulair] 10 mg PO QPM 08/27/19 Omeprazole Magnesium [Prilosec Otc] 40 mg PO QAM 08/27/19 Vilazodone HCl [Viibryd] 20 mg PO DAILY 08/27/19 busPIRone HCL [Buspar] 20 mg PO BID 08/27/19 Pkkhgyrkwn-Hpkqesimnwcbk-Efpiv [Fioricet] 1 cap PO Q4HR #20 cap 10/27/19 Ondansetron HCl [Zofran] 4 mg PO Q6HRS #14 tab 10/27/19 Ibuprofen [Motrin] 400 mg PO Q6H PRN #20 tab 02/01/20 Ondansetron Odt [Zofran ODT] 8 mg PO Q6H PRN #15 tab 02/01/20 Prednisone 50 mg PO DAILY #5 tab 02/01/20 guaiFENesin W/CODEINE LIQ [Robitussin AC] 10 ml PO Q6H PRN #150 ml 02/01/20 LORazepam [Ativan] 1 mg PO BID #6 tab 02/21/20 Review of Systems - Review of Systems Constitutional: States: chills, fever EENTM: States: nose congestion. Denies: eye pain, tearing Respiratory: States: cough. Denies: short of breath, stridor Cardiology: States: chest pain - 2 DAYS . Denies: palpitations, syncope Gastrointestinal/Abdominal: States: abdominal pain, diarrhea, nausea Musculoskeletal: Denies: back pain, muscle pain, muscle stiffness Skin: Denies: see HPI, change in color, lesions Neurological: Denies: see HPI, numbness Endocrine: Denies: flushing, increased thirst, increased urine Hematologic/Lymphatic: Denies: anemia, easy bleeding, easy bruising Past Medical History (General) - Patient Medical History Hx Seizures: No Hx Stroke: No Hx Dementia: No Hx Asthma: No Hx of COPD: Yes Hx Cardiac Disorders: Yes Hx Congestive Heart Failure: No Hx Pacemaker: No Hx Hypertension: No Hx Thyroid Disease: No Hx Diabetes: Yes Hx Gastroesophageal Reflux: Yes Hx Renal Disease: No Hx Cancer: No Hx of HIV: No Hx Hepatitis C: No Hx MRSA: No MRSA Source:: Wound Surgical History: Hysterectomy - Vaccination History Hx Tetanus, Diphtheria Vaccination: Yes Hx Influenza Vaccination: Yes Hx Pneumococcal Vaccination: No - Social History Hx Tobacco Use: Yes Hx Chewing Tobacco Use: No Hx Alcohol Use: No Hx Substance Use: No Hx Substance Use Treatment: No Hx Depression: No Hx Physical Abuse: No Hx Emotional Abuse: No Hx Suspected Abuse: No - Female History Patient is a Female of Child Bearing Age (10 -59 yrs old): Yes Patient : No - Hyst Family Medical History - Family History Mother Family History: Unknown Living Status: Hx Cardiac Disease: Yes Hx Family Diabetes: Yes Physical Exam - Physical Exam General Appearance: Alert Eye Exam: bilateral normal Ears, Nose, Throat: hearing grossly normal, normal ENT inspection, normal pharynx Neck: non-tender, full range of motion, supple, normal inspection Respiratory: chest non-tender, lungs clear, normal breath sounds, no respiratory distress, no accessory muscle use Cardiovascular/Chest: normal peripheral pulses, regular rate, rhythm, no edema, no gallop, no JVD Gastrointestinal/Abdominal: normal bowel sounds, non tender, soft, no organomegaly, no pulsatile mass Rectal Exam: normal exam Back Exam: normal inspection, no CVA tenderness, no vertebral tenderness Extremity: normal range of motion, non-tender, normal inspection, no pedal edema, no calf tenderness Neurologic: marketing assistant retail division II-XII nml as tested, no motor/sensory deficits, alert, normal mood/affect, oriented x 3 Skin Exam: normal color, warm/dry Progress - EKG/XRAY/CT EKG: Sinus, nonspecific ST T wave Chg XRAY: chest - EXAM: Chest,1 View CLINICAL INDICATION: Chest pain COMPARISON: 02/29/2020 FINDINGS: A single view of the chest was obtained. The heart size is normal. The pulmonary vascularity is unremarkable. The lungs are clear. There is no consolidation, infiltrate, pleural effusion, or pneumothorax. IMPRESS Departure - Departure Clinical Impression: Viral syndrome Disposition: Discharge to Home or Self Care Departure Forms: ED Discharge - Pt. Copy, Patient Portal Self Enrollment Instructions: Viral Syndrome (DC) Referrals: MAMI ALMEIDA IV, TUBE DRAW HELPER [Primary Care Provider] - 1-2 Weeks Home Medications: Ambulatory Orders tiZANidine [Zanaflex] 4 mg PO TID 06/03/15 Gabapentin [Neurontin] 600 mg PO TID #0 05/31/16 HYDROcodone 10MG/APAP 325MG [[place] 10/325] 1 tab PO QID 05/31/16 Albuterol Sulfate [Proair Hfa] 108 mcg IN PRN PRN 08/27/19 Budesonide-Formoterol Fumarate [Symbicort] 1 aer IN PRN PRN 08/27/19 Montelukast [Singulair] 10 mg PO QPM 08/27/19 Omeprazole Magnesium [Prilosec Otc] 40 mg PO QAM 08/27/19 Vilazodone HCl [Viibryd] 20 mg PO DAILY 08/27/19 busPIRone HCL [Buspar] 20 mg PO BID 08/27/19 Cxgpigppwu-Huepizgjsssoq-Rmipx [Fioricet] 1 cap PO Q4HR #20 cap 10/27/19 Ondansetron HCl [Zofran] 4 mg PO Q6HRS #14 tab 10/27/19 Ibuprofen [Motrin] 400 mg PO Q6H PRN #20 tab 02/01/20 Ondansetron Odt [Zofran ODT] 8 mg PO Q6H PRN #15 tab 02/01/20 Prednisone 50 mg PO DAILY #5 tab 02/01/20 guaiFENesin W/CODEINE LIQ [Robitussin AC] 10 ml PO Q6H PRN #150 ml 02/01/20 LORazepam [Ativan] 1 mg PO BID #6 tab 02/21/20 Additional Instructions: Follow up with pcp in 1-2 days
[2020-03-07 15:44] VITALS: BP 116/73; TEMP 98.4; O2SAT 94
== END 2020-03-07 15:30 | disposition home or self-care (01) ==
LOC: ER 12:56
DX: B34.9 Viral infection, unspecified (principal); R07.9 Chest pain, unspecified; K21.9 Gastro-esophageal reflux disease without esophagitis; E11.9 Type 2 diabetes mellitus without complications; J44.9 Chronic obstructive pulmonary disease, unspecified; I51.9 Heart disease, unspecified; Z20.828 Contact with and (suspected) exposure to other viral communicable diseases; Z87.891 Personal history of nicotine dependence; Z79.899 Other long term (current) drug therapy; Z88.2 Allergy status to sulfonamides; Z88.1 Allergy status to other antibiotic agents
CPT/HCPCS: 36415; 71045; 80048; 80076; 82550; 82553; 83880; 84484; 85025; 85610; 85730; 87635; 93005; J2405

== ENCOUNTER 2020-04-04 17:37 | Emergency (ER) | payer MEDICARE, MEDICAID | END 2020-04-04 19:05 | disposition left against medical advice (07) | LOC: ER 17:37 | DX: J02.0 Streptococcal pharyngitis (principal); Z53.21 Procedure and treatment not carried out due to patient leaving prior to being seen by health care provider ==

== ENCOUNTER 2020-05-04 17:04 | Observation (INO) | payer MEDICARE, MEDICAID ==
--- NOTE | 2020-05-04 17:08 | HP ---
SUPERVISING PHYSICIAN: Mckinley Bradley MD CHIEF COMPLAINT: Abdominal pain. HISTORY OF PRESENT ILLNESS: This is a 49-year-old female patient who has been in the Emergency Room two times over the last three to four days. She has complained of increasing abdominal pain that started last Monday. She actually had seen her primary care provider, Srinath Workman, and he told her to followup in the Emergency Room if she continued to have problems. Today, she was to see Dr. Jones at [facility] and after a workup there, he felt she may have pancreatitis as she has had a 6-pound weight loss in the last week. She has also had severe abdominal pain with cramping, diarrhea. She has also had back pain as well as lower extremity pain. She has also felt so weak she could not stand up. He called for direct admission. The patient was placed in observation in the hospital. Lab studies were done. Her WBCs are 4,900, hemoglobin 11.7, hematocrit 33.5. Electrolytes within normal limits. Glucose 123, serum osmolality 273.5, ALT less than 7, alkaline phosphatase 32. Urinalysis is within normal limits. Abdomen and pelvis CT shows no evidence of acute intraabdominal process. Chest x-ray shows no abnormality noted. The patient was given antiemetics, IV fluids and placed on bowel rest. PAST MEDICAL HISTORY: 1. Cardiomyopathy. 2. "Silent" myocardial infarction. 3. Chronic back pain. 4. Chronic obstructive pulmonary disease. 5. Gastroesophageal reflux disease. 6. Depression. PAST SURGICAL HISTORY: 1. Back surgery x3. 2. Hysterectomy. 3. sections x2. 4. Cholecystectomy. 5. Appendectomy. 6. Tonsillectomy. 7. Cyst removal of right knee. 8. Cyst removal of right hand. OUTPATIENT MEDICATIONS: 1. Albuterol. 2. Budesonide formoterol. 3. Buspirone. 4. Diazepam. 5. Gabapentin. 6. Hydrocodone. 7. Omeprazole. 8. Zofran. 9. Tizanidine. 10. Vilazodone. ALLERGIES: METRONIDAZOLE, SULFA. FAMILY HISTORY: Noncontributory. SOCIAL HISTORY: She does smoke cigarettes. She smokes about 3 to 4 cigarettes daily. She denies any ETOH or illicit drug use. REVIEW OF SYSTEMS: GENERAL: Positive for fatigue and subjective fever up to 102 as well as a 6- pound loss over the last week. HEENT: Negative for sinus symptoms, ear pain, vision changes or sore throat. RESPIRATORY: Negative for wheezing, coughing or shortness of breath. CARDIAC: Negative for chest pain, palpitations or tachycardia. GASTROINTESTINAL: As per history of present illness. GENITOURINARY: Negative for hematuria, dysuria or polyuria. MUSCULOSKELETAL: Positive for back pain. Negative for arthralgias, myalgias. NEUROLOGIC: Negative for headache, dizziness or seizures. PHYSICAL EXAMINATION: VITAL SIGNS: Temperature 97.9, heart rate 80, blood pressure 117/75, respiratory rate 16, O2 saturation 94% on room air. GENERAL: This is a 49-year-old female lying in her hospital bed. She looks to be in mild pain. HEENT: Normocephalic, atraumatic. Pupils are equal and reactive. Oropharynx is clear. NECK: Supple with full range of motion. RESPIRATORY: Essentially clear to auscultation bilaterally. CARDIOVASCULAR: Regular rate and rhythm. GASTROINTESTINAL: Abdomen is soft. It is diffusely tender. Bowel sounds are positive. There is no guarding or rebound tenderness. BACK: Deferred. NEUROLOGIC: Awake, alert and oriented times three. Cranial nerves II-XII are grossly intact as tested. SKIN: [place], warm and dry. IMPRESSION: 1. Acute abdominal pain with nausea and diarrhea. 2. Chronic obstructive pulmonary disease without exacerbation. 3. Chronic pain syndrome. PLAN: The patient has been placed in observation. Preliminary lab and testing is per the history of present illness. I ordered lab and abdominal sonogram tomorrow. She did say she had had a colonoscopy within the last year, but did not know the results. She is on bowel rest with some IV fluids and some pain medications. She may need further workup with both GI as well as Srinath Workman. #[id number] [facility]
[2020-05-04] MEDS ORDERED: HYDROmorphone HCL INJ 2 MG/ML VIAL ONE ×2 (17:49→21:56)
[2020-05-04] MEDS: HYDROmorphone HCL INJ 2 MG/ML VIAL IV PRN ×2 (17:51→22:03)
[2020-05-04] MEDS ORDERED: ONDANSETRON INJ 4 MG/2 ML VIAL IV PRN ×2 (18:03)
[2020-05-04] MEDS ORDERED: SODIUM CHLORIDE 0.9% (FLUSH) 10 ML SYG IV PRN (18:03)
[2020-05-04] MEDS ORDERED: IV SET AND CAP CHANGE INJ INJ SCH (18:30)
--- NOTE | 2020-05-04 18:55 | RAD ---
EXAM: XR Chest, 1 View CLINICAL HISTORY: admit TECHNIQUE: Frontal view of the chest. COMPARISON: 04/28/2020 FINDINGS: Lungs: No consolidation. Symmetrical vascular pattern. Pleural space: No pneumothorax. No pleural effusion. Heart: Normal cardiac size and configuration. Mediastinum: No abnormality noted. Bones/joints: No osseous destruction or sclerosis noted. IMPRESSION: No abnormality noted. Electronically signed by: Naomi Walker MD 05/04/2020 6:53 PM FIRE TECHNICIAN
--- NOTE | 2020-05-04 19:27 | CT ---
EXAM: Abdomen/Pelvis w/wo Contrast CLINICAL INDICATION: Abdominal pain. COMPARISON: 11/01/2019 TECHNIQUE: The CT scan was done using contiguous axial 5 mm postcontrast sections through the abdomen and pelvis including IV contrast. This exam was performed according to our departmental dose-optimization program, which includes automated exposure control, adjustment of the mA and/or kV according to patient size and/or use of iterative reconstruction technique. FINDINGS: The visualized lung bases reveal bibasilar dependent subsegmental atelectasis in the lower lobes, but are otherwise clear. The gallbladder is surgically absent. The liver, kidneys, adrenal glands, spleen, and pancreas are unremarkable. The aorta is normal in caliber. The uterus is surgically absent. There are no dilated loops of small bowel. There is no free air, free fluid, or abscess. IMPRESSION: No evidence of an acute intra-abdominal process. Electronically signed by: Pk Stock MD 05/04/2020 7:25 PM INTERVENTION MANAGER
[2020-05-04] MEDS: KCL 20MEQ/D5 1/2NS 1,000 ML IVS PRN (22:03)
[2020-05-05] MEDS: HYDROmorphone HCL INJ 2 MG/ML VIAL IV PRN ×2 (02:34→09:29)
[2020-05-05] MEDS: KCL 20MEQ/D5 1/2NS 1,000 ML IVS PRN (04:32)
[2020-05-05 10:09] VITALS: BP 110/70; TEMP 98.3
--- NOTE | 2020-05-05 11:53 | US ---
EXAM DESCRIPTION: Abdomen,Complete: Ultrasound. CLINICAL HISTORY: 49 years Female abd pain COMPARISON: None Available. TECHNIQUE: Transabdominal scanning: grayscale and Doppler modes. FINDINGS: Gallbladder: Surgically absent. No fluid in the gallbladder fossa. Abdominal wall Non-tender with transducer pressure. Common bile duct: caliber 8.5 mm within normal limits. Liver: normal echogenicity; contour liver capsule smooth where seen. No fluid around the liver. Intrahepatic biliary ducts normal caliber. Doppler hepatopedal flow and normal caliber portal vein 8.7 mm.. Long axis right lobe 13.3 cm. Pancreas: normal size and echogenicity. Duct not seen. Complete abdominal aorta: Normal caliber from the proximal segment to the distal bifurcation.. IVC: visualized and normal caliber. Right kidney: long axis measures 8.3 cm; volume 61.4 mL.. Cortical echogenicity is normal. 11 mm cortical thickness.. Echogenic stones; no hydronephrosis. Left kidney: long axis measures 9.4 cm; volume 106.4. Cortical echogenicity is normal. Normal cortical thickness. No echogenic stones; no hydronephrosis. Spleen: Normal. No focal lesions.. 9.7 cm long axis. Other: None. IMPRESSION: 1. Prior cholecystectomy. No fluid in the gallbladder fossa. No wall tenderness. Common bile duct is dilated more than normal postcholecystectomy. No intrahepatic biliary dilatation. No ascites. 2. Liver and pancreas are negative. Normal caliber of the abdominal aorta and IVC. 3. Minimally thinned cortex of the right kidney, otherwise both kidneys are unremarkable. Electronically signed by: Sascha Interiano MD 05/05/2020 11:51 AM [facility]
[2020-05-05] MEDS ORDERED: ALUM & MAG HYDROX-SIMETHICONE 30 ML, LIDOCAINE VISCOUS 2% 15 ML PO ONE ×2 (12:08)
[2020-05-05] MEDS ORDERED: PANTOPRAZOLE SODIUM IV 40 MG VIAL IV ONE (12:09)
[2020-05-05] MEDS ORDERED: ALUM & MAG HYDROX-SIMETHICONE 30 ML UD ONE (12:25)
[2020-05-05] MEDS ORDERED: LIDOCAINE HCL 2% (MOUTH-THROAT) 15 ML UD ONE (12:25)
[2020-05-05] MEDS ORDERED: busPIRone HCL 5 MG TAB PO SCH (12:30)
[2020-05-05] MEDS ORDERED: HYDROcodone 10MG/APAP 325MG 1 EA TAB PO SCH (13:00)
[2020-05-05 14:12] VITALS: O2SAT 98
[2020-05-05] MEDS ORDERED: GABAPENTIN 300 MG CAP PO SCH (15:00)
[2020-05-05] MEDS ORDERED: tiZANidine 4 MG TAB PO SCH (15:00)
[2020-05-05] MEDS ORDERED: diazePAM 5 MG TAB PO SCH (15:00)
[2020-05-05] MEDS ORDERED: SUCRALFATE 1 GM TAB PO SCH (16:30)
[2020-05-06] MEDS ORDERED: VILAZODONE HCL 40 MG PO SCH (09:00)
--- NOTE | 2020-05-07 10:22 | DS ---
SUPERVISING PHYSICIAN: ADMISSION DIAGNOSIS: 1. Acute abdominal pain with nausea and diarrhea. 2. Chronic obstructive pulmonary disease without exacerbation. 3. Chronic pain syndrome. DISCHARGE DIAGNOSIS: 1. Acute abdominal pain, possibly secondary to gastritis with no acute findings on workup with the patient tolerating diet. 2. Chronic obstructive pulmonary disease without exacerbation. 3. Chronic pain syndrome. REASON FOR HOSPITALIZATION: This is a 49-year-old female patient who has been in the Emergency Room two times over the last three to four days. She has complained of increasing abdominal pain that started last Monday. She actually had seen her primary care provider, Srinath Workman, and he told her to followup in the Emergency Room if she continued to have problems. Today, she was to see Dr. Jones at [facility] and after a workup there, he felt she may have pancreatitis as she has had a 6-pound weight loss in the last week. She has also had severe abdominal pain with cramping, diarrhea. She has also had back pain as well as lower extremity pain. She has also felt so weak she could not stand up. He called for direct admission. The patient was placed in observation in the hospital. Lab studies were done. Her WBCs are 4,900, hemoglobin 11.7, hematocrit 33.5. Electrolytes within normal limits. Glucose 123, serum osmolality 273.5, ALT less than 7, alkaline phosphatase 32. Urinalysis is within normal limits. Abdomen and pelvis CT shows no evidence of acute intraabdominal process. Chest x-ray shows no abnormality noted. The patient was given antiemetics, IV fluids and placed on bowel rest. LABORATORY: White count 3,200, hemoglobin 11.3, hematocrit 33.2, platelet count 199,000. Differential was without a left shift. Chemistries showed normal electrolytes. Normal amylase and lipase. Normal liver functions. Creatinine 0.81. Urinalysis unremarkable. MICROBIOLOGY: No specimens were submitted. RADIOLOGY: She had CT of abdomen and pelvis, chest x-ray and abdominal ultrasound. There were no acute findings on the chest x-ray. Abdominopelvic CT with and without contrast showed no evidence of acute intraabdominal process. She also had an abdominal ultrasound and per radiologic interpretation showed prior cholecystectomy. No fluid in the gallbladder fossa. No wall tenderness. Common bile duct was dilated more than normal post cholecystectomy. No intrahepatic biliary dilation. No ascites. Liver and pancreas were negative. Normal caliber for abdominal aorta and IVC. There was minimum thin cortex of the right kidney. Otherwise, both kidneys were unremarkable. HOSPITAL COURSE: Ms. Bowles was admitted for abdominal pain. She was made NPO, given pain management and antiemetics. She was advanced to a diet before discharge and was no longer requiring IV pain management. She was no longer having any nausea and vomiting. She was tolerating a diet. Her pain had essentially resolved with oral medication. It was felt that she clinically improved well enough to continue with outpatient management. Prior to discharge, she was given a GI cocktail with good results with the majority of her symptoms. Vital signs at signs showed temperature 98.3, pulse 71, blood pressure 110/70, respirations 18, saturation 96% on room air. PLAN: Ms. Bowles was discharged on 05/05/20. She was to advance her diet as tolerated. She was to followup with Dr. Jones. She was also to followup with Dr. Layton for possible EGD to workup and rule out further problems such as gastritis given her symptomatology. She was encouraged to avoid tobacco, caffeine, spicy foods, alcohol and NSAIDs. She was to return to the Emergency Room should she have any concern symptoms. She was encouraged to push fluids to prevent dehydration. She was prescribed Carafate 1 gram before meals and at bedtime, #14, no refills. She was already on a proton pump inhibitor and was continued on that prior to discharge. She was again given warnings to return to the ER should she have any concerning symptoms. DISPOSITION: The patient was discharged home. CONDITION ON DISCHARGE: Stable and improved. #[id number] [facility]
== END 2020-05-05 13:50 | disposition home or self-care (01) ==
LOC: MS 17:04 → INTOOBSV 17:04
PROVIDERS: ADMIT Nurse Practitioner Acute Care; ATTEND Nurse Practitioner Family
DX: R10.9 Unspecified abdominal pain (principal); J44.9 Chronic obstructive pulmonary disease, unspecified; G89.4 Chronic pain syndrome; R63.4 Abnormal weight loss; K21.9 Gastro-esophageal reflux disease without esophagitis; F32.9 Major depressive disorder, single episode, unspecified; I42.9 Cardiomyopathy, unspecified; F17.210 Nicotine dependence, cigarettes, uncomplicated; I25.2 Old myocardial infarction; Z68.22 Body mass index [BMI] 22.0-22.9, adult; Z79.891 Long term (current) use of opiate analgesic; Z79.899 Other long term (current) drug therapy; Z90.49 Acquired absence of other specified parts of digestive tract; Z88.2 Allergy status to sulfonamides; Z88.3 Allergy status to other anti-infective agents
CPT/HCPCS: 96366 ×2; 96365; 96375 ×2; 96376; J1170 ×3; J2405 ×2; A4216; 80053 ×2; 36415 ×3; 82150; 81001; 86140; 85025 ×2; 83690; 83735 ×2; 71045; 74178; 76700; 94760 ×2; G0378